=== PATIENT | female | born 1990 | race Hispanic/Latino ===

== ENCOUNTER 2018-09-14 20:04 | Emergency (ER) | payer OTHER ==
[2018-09-14 20:43] LABS: Urine Blood NEGATIVE (NEG); Urine Glucose TRACE (NEG); Urine Protein 1+ (NEG); Urine pH 5.5 (5.0-7.0)
[2018-09-14 21:27] LABS: Absolute Lymphocytes (CBC) 1.9 K/uL (0.7-4.9); Basophils % 0.4 % (0-1.3); Eosinophils % 0.6 % (0-4.4); Hematocrit 40.4 % (36.0-45.0); Lymphocytes % 14.4 % (15.3-44.8); Monocytes % 7.5 % (3.3-12.3); RBC Red Blood Cell Count 4.38 M/uL (3.86-4.86)
[2018-09-14 21:53] LABS: BUN Blood Urea Nitrogen 12 mg/dL (7-18); Bicarbonate 22 mmol/L (21-32); Glucose Level 85 mg/dL (74-106); HCG, Quantitative 107652 mIU/mL (1-3); Potassium 4.8 mmol/L (3.5-5.1); Sodium Level 137 mmol/L (136-145)
[2018-09-14 22:02] LABS: Blood Morphology Comment NOT SEEN (NOT SEEN); Platelet Estimate ADEQ; Urine White Blood Cell Casts OK
--- NOTE | 2018-09-14 22:30 | ER ---
Nurse's Notes [facility] Name: Iram Greco Age: 28 yrs Sex: Female : 1990 Arrival Date: 09/14/2018 Time: 20:08 Bed 30 Private MD: Diagnosis: Lower abdominal pain, unspecified;Intrauterine Presentation: 09/14 20:10 Presenting complaint: Patient states: Pain to pelvic region that began yesterday, lp1 worsening; hx of ovarian cysts; "I think I'm 11 weeks as well"; Denies any vaginal discharge, bleeding. Transition of care: patient was not received from another setting of care. Onset of symptoms was September 13, 2018. Risk Assessment: Do you want to hurt yourself or someone else? Patient reports no desire to harm self or others. Initial Sepsis Screen: Does the patient meet any 2 criteria? No. Patient's initial sepsis screen is negative. Does the patient have a suspected source of infection? No. Patient's initial sepsis screen is negative. Care prior to arrival: None. 20:10 Method Of Arrival: Ambulatory lp1 20:10 Acuity: SCOT 3 lp1 Triage Assessment: 20:14 General: Appears uncomfortable, Behavior is appropriate for age. Pain: Complains of lp1 pain in suprapubic area Pain currently is 8 out of 10 on a pain scale. Quality of pain is described as sharp, Pain began 1 day ago. GI: Abdomen is flat. 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 - Social history:: Smoking status: Patient/guardian denies using tobacco. - Ebola Screening: : No symptoms or risks identified at this time. - Family history:: not pertinent. - Hospitalizations: : No recent hospitalization is reported. Screenin:13 Abuse screen: Denies threats or abuse. Denies injuries from another. Nutritional lp1 screening: No deficits noted. Tuberculosis screening: No symptoms or risk factors identified. Fall Risk None identified. Assessment: 20:45 General: Appears in no apparent distress. uncomfortable, Behavior is calm, cooperative, ca1 appropriate for age. Pain: Complains of pain in suprapubic area and right lower quadrant Pain radiates to right low back Pain currently is 8 out of 10 on a pain scale. Quality of pain is described as crampy. Neuro: Level of Consciousness is awake, alert, obeys commands, Oriented to person, place, time, situation. Cardiovascular: Heart tones S1 S2 present Capillary refill < 3 seconds Patient's skin is warm and dry. Respiratory: Airway is patent Respiratory effort is even, unlabored, Respiratory pattern is regular, symmetrical, Breath sounds are clear bilaterally. GI: Abdomen is flat, non-distended, Bowel sounds present X 4 quads. Abd is soft X 4 quads Abdomen is tender to palpation in suprapubic area and right lower quadrant. : No signs and/or symptoms were reported regarding the genitourinary system. :. EENT: No signs and/or symptoms were reported regarding the EENT system. Derm: Skin is intact, is healthy with good turgor, Skin is pink, warm \\T\\ dry. Musculoskeletal: Circulation, motion, and sensation intact. 21:50 Reassessment: Patient appears in no apparent distress at this time. Patient and/or ca1 family updated on plan of care and expected duration. Pain level reassessed. Patient is alert, oriented x 3, equal unlabored respirations, skin warm/dry/pink. 22:30 Reassessment: Patient appears in no apparent distress at this time. Patient and/or ca1 family updated on plan of care and expected duration. Pain level reassessed. Patient is alert, oriented x 3, equal unlabored respirations, skin warm/dry/pink. Vital Signs: 20:12 BP 149 / 90; Pulse 85; Resp 18; Temp 98.3(O); Pulse Ox 100% on R/A; Weight 58.97 kg lp1 (R); Height 5 ft. 1 in. (154.94 cm); Pain 8/10; 21:50 BP 122 / 87; Pulse 88; Resp 19; Pulse Ox 100% on R/A; ca1 22:30 BP 125 / 83; Pulse 79; Resp 19; Pulse Ox 100% on R/A; ca1 20:12 Body Mass Index 24.56 (58.97 kg, 154.94 cm) lp1 ED Course: 20:08 Patient arrived in ED. es 20:12 Triage completed. lp1 20:12 Arm band placed on left wrist. lp1 20:45 Patient has correct armband on for positive identification. Placed in gown. Bed in low ca1 position. Call light in reach. Side rails up X 1. Pulse ox on. NIBP on. Warm blanket given. 20:46 Abhi Glasgow MD is Attending Physician. rn 20:46 Kenyatta Davidson, JAE is Primary Nurse. ca1 21:03 Inserted saline lock: 22 gauge in right antecubital area, using aseptic technique. ca1 Blood collected. 21:41 TRANSVAG OB In Process Unspecified. EDMS 22:39 No provider procedures requiring assistance completed. IV discontinued, intact, ca1 bleeding controlled, No redness/swelling at site. Pressure dressing applied. Administered Medications: No medications were administered Outcome: 22:29 Discharge ordered by MD. rn 22:39 Discharged to home ambulatory, with family. ca1 22:39 Condition: stable 22:39 Discharge instructions given to patient, Instructed on discharge instructions, follow up and referral plans. Demonstrated understanding of instructions, follow-up care, medications. 22:39 Patient left the ED. ca1 Signatures: Dispatcher [employer] EDVT JuliaKorin Abhi Glasgow MD MD rn Pena, Laura, RN RN lp1 Kenyatta Davidson RN RN ca1 Corrections: (The following items were deleted from the chart) 20:14 20:12 58.97 kg Reported; Height 5 ft. 1 in.; BMI: 24.5; Pain 8/10; lp1 lp1
--- NOTE | 2018-09-14 22:30 | EDPHYS ---
Physician Documentation [facility] Name: Iram Greco Age: 28 yrs Sex: Female : 1990 Arrival Date: 09/14/2018 Time: 20:08 Bed 30 Private MD: ED Physician Abhi Glasgow HPI: 09/14 22:25 This 28 yrs old Female presents to ER via Ambulatory with complaints of rn Abdominal Pain. 22:25 The patient presents with abdominal pain. Onset: The symptoms/episode began/occurred rn today. The symptoms do not radiate. Associated signs and symptoms: Pertinent positives: , Pertinent negatives: blood in stools, fever. Modifying factors: The symptoms are alleviated by nothing, the symptoms are aggravated by touching the area. Severity of pain: At its worst the pain was moderate in the emergency department the pain is unchanged. The patient has experienced similar episodes in the past. Reports multiple similar pains in past, attributed to ovarian cysts, reports thinks 11 weeks preg and no u/s or verification. NO fever. Hurts when walking, pain comes in waves. NO urinary symptoms.. 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 - Social history:: Smoking status: Patient/guardian denies using tobacco. - Ebola Screening: : No symptoms or risks identified at this time. - Family history:: not pertinent. - Hospitalizations: : No recent hospitalization is reported. ROS: 22:25 Constitutional: Negative for fever, chills, and weight loss, Eyes: Negative for injury, rn pain, redness, and discharge, Neck: Negative for injury, pain, and swelling, Cardiovascular: Negative for chest pain, palpitations, and edema, Respiratory: Negative for shortness of breath, cough, wheezing, and pleuritic chest pain, Abdomen/GI: + lower abd pain MS/Extremity: Negative for injury and deformity, Skin: Negative for injury, rash, and discoloration, Neuro: Negative for headache, weakness, numbness, tingling, and seizure. Exam: 22:25 Constitutional: This is a well developed, well nourished patient who is awake, alert, rn and in no acute distress. Head/Face: Normocephalic, atraumatic. Eyes: Pupils equal round and reactive to light, extra-ocular motions intact. ENT: MMM Respiratory: No increased work of breathing, no retractions or nasal flaring. Abdomen/GI: soft, mild suprapubic tenderness, no rebound, no masses, no peritoneal signs Skin: Warm, dry with normal turgor. Normal color with no rashes, no lesions, and no evidence of cellulitis. MS/ Extremity: Pulses equal, no cyanosis. Neurovascular intact. Full, normal range of motion. Equal circumference. Neuro: Awake and alert, GCS 15, oriented to person, place, time, and situation. Vital Signs: 20:12 BP 149 / 90; Pulse 85; Resp 18; Temp 98.3(O); Pulse Ox 100% on R/A; Weight 58.97 kg lp1 (R); Height 5 ft. 1 in. (154.94 cm); Pain 8/10; 21:50 BP 122 / 87; Pulse 88; Resp 19; Pulse Ox 100% on R/A; ca1 22:30 BP 125 / 83; Pulse 79; Resp 19; Pulse Ox 100% on R/A; ca1 20:12 Body Mass Index 24.56 (58.97 kg, 154.94 cm) lp1 MDM: 20:46 Patient medically screened. rn 22:25 Differential diagnosis: Ectopic , non-specific abd pain, Ovarian Torsion, rn Ureterolithiasis, urinary tract infection. Differential diagnosis: appendicitis. Data reviewed: vital signs, nurses notes. Counseling: I had a detailed discussion with the patient and/or guardian regarding: the historical points, exam findings, and any diagnostic results supporting the discharge/admit diagnosis, lab results, radiology results, the need for outpatient follow up, to return to the emergency department if symptoms worsen or persist or if there are any questions or concerns that arise at home. Special discussion: I discussed with the patient/guardian in detail that at this point there is no indication for admission to the hospital. It is understood, however, that if the symptoms persist or worsen the patient needs to return immediately for re-evaluation. ED course: Pt with IUP, normal FHTs, flow to both ovaries by verbal report, afebrile, neg UA. Instructions given to patient to return if worsens/fever/more signs of appendicitis given lower abd pain.. 09/14 20:37 Order name: Urine Dipstick--Ancillary (enter results); Complete Time: 20:46 ar5 09/14 20:37 Order name: Urine --Ancillary (enter results); Complete Time: 20:46 ar5 09/14 20:47 Order name: Quantitative Hcg; Complete Time: 22:13 09/14 20:47 Order name: Abo/rh Typing; Complete Time: 22:13 09/14 20:47 Order name: Basic Metabolic Panel; Complete Time: 22:13 09/14 20:47 Order name: CBC with Diff; Complete Time: 22:13 09/14 20:26 Order name: Urine Dipstick-Ancillary (obtain specimen); Complete Time: 21:16 lp1 09/14 20:26 Order name: Urine Test (obtain specimen); Complete Time: 21:16 [facility] 09/14 20:47 Order name: IV Start; Complete Time: 21:16 09/14 20:47 Order name: Labs collected and sent; Complete Time: 21:15 rn 09/14 21:26 Order name: TRANSVAG OB EDDE 09/14 21:41 Order name: CBC Smear Scan; Complete Time: 22:13 EDDE 09/14 22:23 Order name: ABO/RH no charge; Complete Time: 22:24 EDDE 09/14 20:47 Order name: NPO; Complete Time: 21:15 rn Administered Medications: No medications were administered Disposition: 09/14/18 22:29 Discharged to Home. Impression: Lower abdominal pain, unspecified, Intrauterine . - Condition is Stable. - Discharge Instructions: Abdominal Pain During , First Trimester of . - Medication Reconciliation Form, Thank You Letter, Antibiotic Education, Prescription Opioid Use form. - Follow up: Private Physician; When: As needed; Reason: Recheck today's complaints, Re-evaluation by your physician. - Problem is new. - Symptoms have improved. Signatures: Dispatcher [employer] EDMS Abhi Glasgow MD MD rn Pena, Laura RN RN lp1 Kenyatta Davidson RN RN ca1 Corrections: (The following items were deleted from the chart) 21:26 20:47 OB Limited+[id number] ordered. EDMS EDMS 22:39 22:29 09/14/2018 22:29 Discharged to Home. Impression: Lower abdominal pain, ca1 unspecified; Intrauterine . Condition is Stable. Forms are Medication Reconciliation Form, Thank You Letter, Antibiotic Education, Prescription Opioid Use. Follow up: Private Physician; When: As needed; Reason: Recheck today's complaints, Re-evaluation by your physician. Problem is new. Symptoms have improved. rn
[2018-09-15 00:57] VITALS: BP 149/90; TEMP 98.3; O2SAT 100
--- NOTE | 2018-09-15 08:16 | RAD REPORT ---
EXAM DESCRIPTION: US - TRANSVAG OB - 09/14/2018 9:41 pm CLINICAL HISTORY: with abdominal pain COMPARISON: None FINDINGS: The uterus measures 10 x 7 x 8 centimeters. A gestational sac is present within the endom etrium. Within this is a pole with a crown-rump length 2.2 centimeters. Cardiac activity 168 be ats per minute. The ovaries are normal in size echotexture. Right and left adnexa unremarkable. No significant free fluid IMPRESSION: Single live intrauterine with an estimated gestational age 8 weeks 6 days ALEXIA 04/20/2019
== END 2018-09-14 22:39 | disposition home or self-care (01) ==
LOC: ER 20:04
DX: O26.891 Other specified pregnancy related conditions, first trimester (principal); Z3A.11 11 weeks gestation of pregnancy
CPT/HCPCS: 36415; 76813; 80048; 81003; 81025; 84702; 85025; 86900; 86901

== ENCOUNTER 2022-01-09 07:28 | Emergency (ER) | payer OTHER ==
--- OUTSIDE RECORDS SUMMARY | 2022-01-09 07:32 | XMS REPORT | Continuity of Care Document ---
:1990 Author Organization [facility] t Address [address] [place] [address] Care Team Providers Name Role Phone BANDAR Attending Clinician Unavailable G_Pappastacie Attending Clinician Unavailable FISH Attending Clinician Unavailable UNKNOWN Attending Clinician Unavailable RAAD, A Attending Clinician Unavailable BANDAR Admitting Clinician Unavailable G_Pappas Admitting Clinician Unavailable Payers Payer Name Policy Type Policy Number Effective Date Expiration Date S [place] [id number] [place] [facility] [id number] [facility] (MEDICAID REPLACEMENT - HMO) [place] [id number] [facility] (MEDICAID) [place] [id number] 2020 00:00:00 [facility] [place] [facility] [id number] 2019 00:00:00 [facility] GENERIC [id number] 2012 00:00:00 [facility] [id number] 2012 2020 [facility] MEDICAID 00:00:00 00:00:00 Problems Condition Condition Condition Status Onset Resolution Last Treating Co mments Source Name Details Category Date Date Treatment Clinician Date Gynecologi Gynecologi Problem Active 2019-07 [facility] c 0-06 da examinatio Examinatio 00:00: Me dical n n 00 Group Initiation Initiation Problem Active 2019-07 [facility] of of 0-06 da transderma Transderma 00:00: Me dical l l 00 Group contracept Contracept ion done ion Done Mild Mild Problem Active [facility] pre-eclamp Pre-eclamp 9-06 da santi santi 00:00: Medical 00 Group Threatened Threatened Problem Active 0 [facility] premature Premature 02-14 da labor - Labor - 00:00: Medical not Not 00 Group delivered Delivered Allergies, Adverse Reactions, Alerts Allergy Allergy Status Severity Reaction(s) Onset Inactive Treating Comm ents Source Name Type Date Date Clinician No Known DA Active [facility] -[facility] NO KNOWN Drug Active Univers ALLERGIE Class ity of [facility] Social History Smoking Status Start Date Stop Date Source Never Smoker [facility] Medications This patient has no known medications. Vital Signs Vital Name Observation Time Observation Value Comments Source BP Diastolic 2020-10-25 00:00:00 78 mm[Hg] [facility] Height 2020-10-25 00:00:00 61 [in_i] [facility] BMI (Body Mass 2020-10-25 00:00:00 24.8 kg/m2 [facility] business development [facility] Index) Group BP Systolic 2020-10-25 00:00:00 129 mm[Hg] [facility] Body Weight 2020-10-25 00:00:00 131 [lb_av] [facility] BP Diastolic 2020-05-01 00:00:00 82 mm[Hg] [facility] Height 2020-05-01 00:00:00 61 [in_i] [facility] BMI (Body Mass 2020-05-01 00:00:00 23.8 kg/m2 [facility] business [facility] Index) Group BP Systolic 2020-05-01 00:00:00 138 mm[Hg] [facility] Body Weight 2020-05-01 00:00:00 126.1 [lb_av] [facility] BP Diastolic 2019-05-24 00:00:00 95 mm[Hg] [facility] Height 2019-05-24 00:00:00 61 [in_i] [facility] BMI (Body Mass 2019-05-24 00:00:00 24.8 kg/m2 [facility] business development [facility] Index) Group BP Systolic 2019-05-24 00:00:00 127 mm[Hg] [facility] Body Weight 2019-05-24 00:00:00 131 [lb_av] [facility] BP Diastolic 2019-05-05 00:00:00 88 mm[Hg] [facility] Height 2019-05-05 00:00:00 61 [in_i] [facility] BMI (Body Mass 2019-05-05 00:00:00 24.6 kg/m2 [facility] Index) Group BP Systolic 2019-05-05 00:00:00 132 mm[Hg] [facility] Body Weight 2019-05-05 00:00:00 130.4 [lb_av] [facility] BP Diastolic 2019-04-07 00:00:00 90 mm[Hg] [facility] Height 2019-04-07 00:00:00 61 [in_i] [facility] BMI (Body Mass 2019-04-07 00:00:00 27.7 kg/m2 [facility] Index) Group BP Systolic 2019-04-07 00:00:00 136 mm[Hg] [facility] Body Weight 2019-04-07 00:00:00 146.8 [lb_av] [facility] BP Diastolic 2019-04-01 00:00:00 88 mm[Hg] [facility] Height 2019-04-01 00:00:00 61 [in_i] [facility] BMI (Body Mass 2019-04-01 00:00:00 27.5 kg/m2 [facility] Index) Group BP Systolic 2019-04-01 00:00:00 145 mm[Hg] [facility] Body Weight 2019-04-01 00:00:00 145.7 [lb_av] [facility] BP Diastolic 2019-03-17 00:00:00 72 mm[Hg] [facility] Height 2019-03-17 00:00:00 61 [in_i] [facility] BMI (Body Mass 2019-03-17 00:00:00 26.8 kg/m2 [facility] Group BP Systolic 2019-03-17 00:00:00 115 mm[Hg] [facility] Body Weight 2019-03-17 00:00:00 141.7 [lb_av] [facility] BP Diastolic 2019-03-01 00:00:00 72 mm[Hg] [facility] Height 2019-03-01 00:00:00 61 [in_i] [facility] BMI (Body Mass 2019-03-01 00:00:00 26.3 kg/m2 [facility] Index) Group BP Systolic 2019-03-01 00:00:00 127 mm[Hg] [facility] Body Weight 2019-03-01 00:00:00 139.2 [lb_av] [facility] BP Diastolic 2019-02-14 00:00:00 73 mm[Hg] [facility] Height 2019-02-14 00:00:00 61 [in_i] [facility] BMI (Body Mass 2019-02-14 00:00:00 25.7 kg/m2 [facility] BP Systolic 2019-02-14 00:00:00 125 mm[Hg] [facility] Body Weight 2019-02-14 00:00:00 135.9 [lb_av] [facility] BP Diastolic 2019-02-01 00:00:00 80 mm[Hg] [facility] Height 2019-02-01 00:00:00 61 [in_i] [facility] BMI (Body Mass 2019-02-01 00:00:00 26 kg/m2 [facility]) Group BP Systolic 2019-02-01 00:00:00 124 mm[Hg] [facility] Body Weight 2019-02-01 00:00:00 137.6 [lb_av] [facility] BP Diastolic 2019-01-28 00:00:00 80 mm[Hg] [facility] Height 2019-01-28 00:00:00 61 [in_i] [facility] BMI (Body Mass 2019-01-28 00:00:00 25.9 kg/m2 [facility] BP Systolic 2019-01-28 00:00:00 124 mm[Hg] [facility] Body Weight 2019-01-28 00:00:00 137 [lb_av] [facility] BP Diastolic 2018-11-22 00:00:00 74 mm[Hg] [facility] Height 2018-11-22 00:00:00 61 [in_i] [facility] BMI (Body Mass 2018-11-22 00:00:00 24.2 kg/m2 [facility] Group BP Systolic 2018-11-22 00:00:00 124 mm[Hg] [facility] Body Weight 2018-11-22 00:00:00 128.1 [lb_av] [facility] BP Diastolic 2018-11-15 00:00:00 77 mm[Hg] [facility] Height 2018-11-15 00:00:00 61 [in_i] [facility] BMI (Body Mass 2018-11-15 00:00:00 23.1 kg/m2 [facility] BP Systolic 2018-11-15 00:00:00 127 mm[Hg] [facility] Body Weight 2018-11-15 00:00:00 122 [lb_av] [facility] BP Diastolic 2018-10-13 00:00:00 78 mm[Hg] [facility] Height 2018-10-13 00:00:00 61 [in_i] [facility] BP Systolic 2018-10-13 00:00:00 120 mm[Hg] [facility] Body Weight 2018-10-13 00:00:00 121 [lb_av] [facility] BP Diastolic 2018-09-15 00:00:00 86 mm[Hg] [facility] Height 2018-09-15 00:00:00 61 [in_i] [facility] BMI (Body Mass 2018-09-15 00:00:00 23.3 kg/m2 [facility] BP Systolic 2018-09-15 00:00:00 132 mm[Hg] [facility] Body Weight 2018-09-15 00:00:00 123.5 [lb_av] [facility] Procedures Procedure Date / Time Performing Clinician Source Performed US(FBP)W/0 NON STRESS 2019-04-07 00:00:00 [facility] US, obstetric, limited 2019-04-01 00:00:00 [facility], limited [facility] 2019-02-14 00:00:00 [facility] ULTRASOUND REPEAT 2019-02-01 00:00:00 [facility] US, obstetric, limited 2018-11-15 00:00:00 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 Medical translucency Group Plan of Care Planned Activity Planned Date Details Comments Source Diagnostic Test 2020-10-25 urinalysis, [facility] 00:00:00 dipstick [code = Group urinalysis, dipstick] Diagnostic Test 2020-10-25 test, [facility] Pending 00:00:00 urine [code = Group test, urine] Encounters Start End Encounter Admission Attending Care Care Encounter Source Date/Time Date/Time Type Type Clinicians Facility Department ID 2021-08-01 2021-08-01 Outpatient LISTER_GRACYI YAW [facility] [id number] [place] 04:57:00 04:57:00 [id number] 2021-06-19 2021-06-19 Outpatient LISTER_SCOTT [facility] [id number] [place] 11:48:00 11:48:00 [facility] 2020-10-25 2020-10-25 Outpatient G_Pappas [facility] 2020 [place] 11:25:00 11:25:00 0401 [facility] 2020-10-25 2020-10-25 Outpatient [facility] 2020 [place] 11:25:00 11:25:00 0415 [facility] 2020-10-25 2020-10-25 Kyle [facility] [place] - [id number] [facility] 00:00:00 00:00:00 Discovery morgan Tarango MD: [address] [address], [place] [address] , Ph. [phone] 2020-10-11 2020-10-11 Outpatient G_Pappas [facility] 2020 [place] 03:11:00 03:11:00 0318 Medical Group 2020-10-11 2020-10-11 Outpatient G_Pappas [facility] 2020 [place] 03:11:00 03:11:00 0326 Medical Group 2020-09-03 2020-09-03 Outpatient R JOCELYN HONG [facility] [id number] [facility] 10:30:00 10:30:00 [id number] [facility] 2020-09-03 2020-09-03 Outpatient JOCELYN STEINER [facility] [id number] Univers 10:30:00 10:30:00 [facility] 2020-08-27 2020-08-27 Outpatient R JOCELYN HONG [facility] [id number] Univers 10:30:00 10:30:00 [facility] 2020-08-27 2020-08-27 Outpatient R JOCELYN HONG [facility] [id number] Univers 08:30:00 08:30:00 [id number] [facility] 2020-08-20 2020-08-20 Outpatient LISTER_SCOTT VASQUEZ [facility] [id number] [place] 09:57:00 09:57:00 [facility] 2020-08-16 2020-08-16 Outpatient LISTER_MELI PEDRO [facility] [id number] [place] 04:03:00 04:03:00 [facility] 0121 [facility] 2020-08-03 2020-08-03 Outpatient G_Pappas [facility] 2020 [place] 04:26:00 04:26:00 0108 Medical Group 2020-08-03 2020-08-03 Outpatient G_Pappas [facility] 2020 [place] 04:26:00 04:26:00 0119 Medical Group 2020-06-13 2020-06-13 Outpatient G_Pappas [facility] 2019 [place] 02:47:00 02:47:00 [id number] Medical Group 2020-05-01 2020-05-01 Outpatient G_Pappas [facility] 2019 [place] 03:37:00 03:37:00 1006 [facility] Group 2020-05-01 2020-05-01 Outpatient G_Pappas [facility] 2019 [place] 03:37:00 03:37:00 1007 [facility] 2020-05-01 2020-05-01 Aleida Rouse [facility] [place] - [id number] [place] 00:00:00 00:00:00 Discovery Nacho da WHNP: [address] [facility] [place] [address], [place] [address] , Ph. [phone] 2020-04-27 2020-04-27 Outpatient R [facility] [id number] Univers 15:00:00 15:00:00 [facility] 2020-04-27 2020-04-27 Outpatient R [facility] [id number] Univers 15:00:00 15:00:00 [facility] 2020-02-05 2020-02-05 Outpatient R UNKNOWN, [facility] [id number] Univers 16:00:00 16:00:00 ATTENDING [facility] 2020-02-05 2020-02-05 Outpatient R [facility] [id number] Univers 16:00:00 16:00:00 [id number] [facility] 2020-01-19 2020-01-19 Outpatient R [facility] [id number] Univers 14:45:00 14:45:00 [id number] [facility] 2020-01-19 2020-01-19 Outpatient R RAAD, [facility] [id number] Univers 14:00:00 14:00:00 CARMEN [facility] 2020-01-05 2020-01-05 Outpatient G_Pappas [facility] MM 2019 [place] 03:26:00 03:26:00 0611 Medical Group 2020-01-05 2020-01-05 Outpatient G_Pappas [facility] 2019 [place] 03:26:00 03:26:00 0625 Medical [facility] 2020-01-05 2020-01-05 Outpatient G_Pappas [facility] [id number] [place] 03:26:00 03:26:00 0715 da Medical Group 2019-06-10 2019-06-10 Outpatient G_Pappas [facility] [id number] [facility] 04:08:00 04:08:00 [id number] [facility] 2019-06-10 2019-06-10 Outpatient G_Pappas [facility] [id number] [place] 04:08:00 04:08:00 0113 [facility] 2019-05-24 2019-05-24 Kyle PINO [place] - [id number] [facility] 00:00:00 00:00:00 Discovery morgan Tarango MD: [address] [place] [address] , Ph. [phone] 2019-05-05 2019-05-05 Kyle [place] - [id number] [facility] 00:00:00 00:00:00 Discovery mrogan Tarango MD: [address] [place] [address] , Ph. [phone] 2019-04-07 2019-04-07 Kyle [place] - [id number] [facility] 00:00:00 00:00:00 Discovery morgan Tarango MD: [address] [place] [address] , Ph. [phone] 2019-04-01 2019-04-01 Kyle [place] - [id number] [facility] 00:00:00 00:00:00 Discovery morgan Tarango MD: [address] [place] [address] , Ph. [phone] 2019-03-17 2019-03-17 Aleida Rouse [facility] [place] - [id number] [place] 00:00:00 00:00:00 Discovery morgan Griffith WHNP: [address] [place] [address] , Ph. [phone] 2019-03-01 2019-03-01 Kyle [place] - [id number] [facility] 00:00:00 00:00:00 Discovery morgan Tarango MD: [address] [place] [address], [address] [address], [place] [address] , Ph. [phone] 2019-02-14 2019-02-14 Kyle [place] - [id number] M [facility] 00:00:00 00:00:00 Discovery morgan Tarango MD: [address] [place] [address], [address] [address], [place] [address] , Ph. [phone] 2019-02-01 2019-02-01 Kyle [place] - [id number] [facility] 00:00:00 00:00:00 Discovery morgan Tarango MD: [address] [place] [address], [address] [address], [place] [address] , Ph. [phone] 2019-01-28 2019-01-28 Kyle [place] - [id number] [facility] 00:00:00 00:00:00 Discovery morgan Tarango MD: [address] [place] [address], [address] [address], [place] [address] , Ph. [phone] 2018-11-22 2018-11-22 Aleida [place] - [id number] [place] 00:00:00 00:00:00 Discovery morgan Griffith WHNP: [address] [place] [address], [place] [address] , Ph. [phone] 2018-11-15 2018-11-15 Aleida [place] - [id number] [place] 00:00:00 00:00:00 Discovery Nicholas GriffithNP: [address] [place] [address], [address] [address], [place] [address] , Ph. [phone] 2018-10-13 2018-10-13 Isabell [place] - [id number] [facility] 00:00:00 00:00:00 Ariana Moreno Medicgiovany nair MD: [address] [facility] [place] [address] , Ph. [phone] 2018-09-15 2018-09-15 Isabell [facility] [place] - [id number] M [facility] 00:00:00 00:00:00 Ariana Moreno MD: 600 [facility] [address] [address] , Ph. [phone] Results Test Description Test Time Test Comments Results Result Comments Source test, urine 2020-10-25 10:31:45 Test Item Value Reference Range Interpretation Comme nts Test (test code = Test) negative [facility] (dipstick) panel - [id number] 10:26:07 Test Item Value Reference Range Interpretation Comments Leukocytes (test code = Negative Leukocytes) Nitrite (test code = negative Nitrite) Urobilinogen (test code = .2 Urobilinogen) Protein (test code = Negative Protein) pH (test code = pH) 5.5 Blood (test code = Blood) Hemolyzed: Trace Specific [place] (test code 1.030 = Specific [place]) Ketone (test code = Ketone) Negative Bilirubin (test code = Negative Bilirubin) Glucose (test code = Negative Glucose) Appearance (test code = Clear Appearance) Color (test code = Color) Yellow [facility] test, [id number] 13:22:27 Test Item Value Reference Range Interpretation Comments Test (test code = negative Test) [facility] macro (dipstick) panel - [id number] 11:02:00 Test Item Value Reference Range Interpretation Comments Leukocytes (test code = Leukocytes) Negative Nitrite (test code = Nitrite) negative Urobilinogen (test code = 1 Urobilinogen) Protein (test code = Protein) Negative pH (test code = pH) 5.5 Blood (test code = Blood) Negative Specific [place] (test code = 1.030 Specific [place]) Ketone (test code = Ketone) Negative Bilirubin (test code = Bilirubin) Negative Glucose (test code = Glucose) Negative Appearance (test code = Appearance) Clear Color (test code = Color) Yellow [facility] macro (dipstick) panel - [id number] 11:02:00 Test Item Value Reference Range Interpretation Comments Leukocytes (test code = Leukocytes) Negative Nitrite (test code = Nitrite) negative Urobilinogen (test code = 1 Urobilinogen) Protein (test code = Protein) Negative pH (test code = pH) 5.5 Blood (test code = Blood) Negative Specific [place] (test code = 1.030 Specific [place]) Ketone (test code = Ketone) Negative Bilirubin (test code = Bilirubin) Negative Glucose (test code = Glucose) Negative Appearance (test code = Appearance) Clear Color (test code = Color) [facility] - [id number] 09:05:00 Test Item Value Reference Range Interpretation Comments white blood count (test code = 9.3 K/uL 4.0-11.5 white blood count) red blood count (test code = red 3.52 M/uL 3.80-5.20 L blood count) hemoglobin (test code = 9.2 g/dL 10.5-15.7 L hemoglobin) hematocrit (test code = 29.2 % 34.0-50.0 L hematocrit) Erythrocyte mean corpuscular 83.0 fL 86-100 L volume [Entitic volume] (test code = 02830-3) mean corpuscular hemoglobin (test 26.1 pg 26.2-33.4 L code = mean corpuscular hemoglobin) mean corpuscular HGB conc (test 31.5 g/dL 30-34 code = mean corpuscular HGB conc) red cell distribution width (test 14.5 % 12.0-15.5 code = red cell distribution width) platelet count (test code = 113 K/uL 165-450 L platelet count) mean platelet volume (test code = 12.7 fL 9.4-12.6 H mean platelet volume) Neutrophils.segmented/100 69.4 % 44.4-80.1 leukocytes in Blood (test code = 54448-4) Granulocytes Immature [#/volume] 0.1 K/uL 0.0-0.03 H in Blood (test code = 01525-3) lymphocyte% (test code = 20.0 % 10.0-50.0 lymphocyte%) mono % (test code = mono %) 7.7 % 3.6-12.0 eos % (test code = eos %) 1.7 % 0.0-5.4 Basophils/100 leukocytes in 0.3 % 0.1-1.2 Unspecified specimen (test code = 66022-2) Neutrophils.band form [#/volume] 6.47 K/uL 1.56-6.13 H in Blood (test code = 04607-7) Lymphocytes [#/volume] in 1.9 K/uL 1.18-3.74 Unspecified specimen by Automated count (test code = 86927-0) mono # (test code = mono #) 0.72 K/uL 0.24-0.86 eos # (test code = eos #) 0.16 K/uL 0.04-0.36 basophil # (test code = basophil 0.03 K/uL 0.01-0.08 #) NRBC% (test code = NRBC%) 0 /100 WBC 0-0.2 NRBC# (test code = NRBC#) 0 K/uL [facility] W Auto Differential panel - [id number] 04:40:00 Test Item Value Reference Range Interpretation Comments white blood count (test code = 7.4 K/uL 4.0-11.5 white blood count) red blood count (test code = red 3.69 M/uL 3.80-5.20 L blood count) hemoglobin (test code = 9.7 g/dL 10.5-15.7 L hemoglobin) hematocrit (test code = 30.6 % 34.0-50.0 L hematocrit) Erythrocyte mean corpuscular 82.9 fL 86-100 L volume [Entitic volume] (test code = 06797-6) mean corpuscular hemoglobin (test 26.3 pg 26.2-33.4 code = mean corpuscular hemoglobin) mean corpuscular HGB conc (test 31.7 g/dL 30-34 code = mean corpuscular HGB conc) red cell distribution width (test 14.4 % 12.0-15.5 code = red cell distribution width) platelet count (test code = 128 K/uL 165-450 L platelet count) mean platelet volume (test code = 12.6 fL 9.4-12.6 mean platelet volume) Neutrophils.segmented/100 65.0 % 44.4-80.1 leukocytes in Blood (test code = 40537-6) Granulocytes Immature [#/volume] 0.1 K/uL 0.0-0.03 H in Blood (test code = 47781-5) lymphocyte% (test code = 21.3 % 10.0-50.0 lymphocyte%) mono % (test code = mono %) 10.5 % 3.6-12.0 eos % (test code = eos %) 1.8 % 0.0-5.4 Basophils/100 leukocytes in 0.3 % 0.1-1.2 Unspecified specimen (test code = 93995-5) Neutrophils.band form [#/volume] 4.83 K/uL 1.56-6.13 in Blood (test code = 26693-8) Lymphocytes [#/volume] in 1.6 K/uL 1.18-3.74 Unspecified specimen by Automated count (test code = 50327-0) mono # (test code = mono #) 0.78 K/uL 0.24-0.86 eos # (test code = eos #) 0.13 K/uL 0.04-0.36 basophil # (test code = basophil 0.02 K/uL 0.01-0.08 #) NRBC% (test code = NRBC%) 0 /100 WBC 0-0.2 NRBC# (test code = NRBC#) 0 K/uL [facility] [Presence] in Serum by [id number] 04:40:00 Test Item Value Reference Range Interpretation Comments Reagin Ab [Presence] in Serum by nonreactive nonreactive RPR (test code = 83489-6) [facility]atitis B virus surface Ag [Presence] in Serum 2019-04-13 04:40:00 Test Item Value Reference Range Interpretation Comments .hepatitis B surface antigen (test negative negative code = .hepatitis B surface antigen) [facility]aksFetal Biophysical profile panel [id number] 11:26:16 Test Item Value Reference Range Interpretation Comments Amniotic Fluid Index (test code = 2 (16.6) Amniotic Fluid Index) Tone (test code = Tone) 2 Breathing (test code = 2 Breathing) Movement (test code = 2 Movement) Non-Stress Test (test code = 2 Non-Stress Test) [facility] Bi[facility] profile panel [id number] 11:26:16 Test Item Value Reference Range Interpretation Comments Amniotic Fluid Index (test code = 2 (16.6) Amniotic Fluid Index) Tone (test code = Tone) 2 Breathing (test code = 2 Breathing) Movement (test code = 2 Movement) Non-Stress Test (test code = 2 Non-Stress Test) [facility]inalysis macro (dipstick) panel - [id number] 11:01:27 Test Item Value Reference Range Interpretation Comments Leukocytes (test code = Leukocytes) Negative Nitrite (test code = Nitrite) negative Urobilinogen (test code = 1 Urobilinogen) Protein (test code = Protein) 100 pH (test code = pH) 5.5 Blood (test code = Blood) Negative Specific [place] (test code = 1.030 Specific [place]) Ketone (test code = Ketone) Small Bilirubin (test code = Bilirubin) Small Glucose (test code = Glucose) 100 Appearance (test code = Appearance) Clear Color (test code = Color) [place] [facility]inalysis macro (dipstick) panel - [id number] 11:01:27 Test Item Value Reference Range Interpretation Comments Leukocytes (test code = Leukocytes) Negative Nitrite (test code = Nitrite) negative Urobilinogen (test code = 1 Urobilinogen) Protein (test code = Protein) 100 pH (test code = pH) 5.5 Blood (test code = Blood) Negative Specific [place] (test code = 1.030 Specific [place]) Ketone (test code = Ketone) Small Bilirubin (test code = Bilirubin) Small Glucose (test code = Glucose) 100 Appearance (test code = Appearance) Clear Color (test code = Color) [place] [facility]inalysis macro (dipstick) panel - [id number] 10:25:10 Test Item Value Reference Range Interpretation Comments Leukocytes (test code = Leukocytes) Negative Nitrite (test code = Nitrite) negative Urobilinogen (test code = 1 Urobilinogen) Protein (test code = Protein) 100 pH (test code = pH) 6.0 Blood (test code = Blood) Negative Specific [place] (test code = 1.030 Specific [place]) Ketone (test code = Ketone) Trace Bilirubin (test code = Bilirubin) Small Glucose (test code = Glucose) 100 Appearance (test code = Appearance) Clear Color (test code = Color) [facility] - [id number] 10:25:10 Test Item Value Reference Range Interpretation Comments Leukocytes (test code = Leukocytes) Negative Nitrite (test code = Nitrite) negative Urobilinogen (test code = 1 Urobilinogen) Protein (test code = Protein) 100 pH (test code = pH) 6.0 Blood (test code = Blood) Negative Specific [place] (test code = 1.030 Specific [place]) Ketone (test code = Ketone) Trace Bilirubin (test code = Bilirubin) Small Glucose (test code = Glucose) 100 Appearance (test code = Appearance) Clear Color (test code = Color) [facility] - [id number] 08:50:00 Test Item Value Reference Range Interpretation Comments white blood count (test code = 8.9 K/uL 4.0-11.5 white blood count) red blood count (test code = red 4.03 M/uL 3.80-5.20 blood count) hemoglobin (test code = 10.8 g/dL 10.5-15.7 hemoglobin) hematocrit (test code = 34.4 % 34.0-50.0 hematocrit) Erythrocyte mean corpuscular 85.4 fL 86-100 L volume [Entitic volume] (test code = 13398-8) mean corpuscular hemoglobin (test 26.8 pg 26.2-33.4 code = mean corpuscular hemoglobin) mean corpuscular HGB conc (test 31.4 g/dL 30-34 code = mean corpuscular HGB conc) red cell distribution width (test 14.0 % 12.0-15.5 code = red cell distribution width) platelet count (test code = 134 K/uL 165-450 L platelet count) mean platelet volume (test code = 12.7 fL 9.4-12.6 H mean platelet volume) Neutrophils.segmented/100 72.8 % 44.4-80.1 leukocytes in Blood (test code = 17562-1) Ig% (test code = Ig%) 1.1 % 0.0-0.4 H lymphocyte% (test code = 15.1 % 10.0-50.0 lymphocyte%) mono % (test code = mono %) 10.1 % 3.6-12.0 eos % (test code = eos %) 0.6 % 0.0-5.4 Basophils/100 leukocytes in 0.3 % 0.1-1.2 Unspecified specimen (test code = 70826-8) absolute neutrophil count (test 6.50 K/uL 1.56-6.13 H code = absolute neutrophil count) Ig# (test code = Ig#) 0.1 K/uL 0.0-0.03 H Lymphocytes [#/volume] in 1.4 K/uL 1.18-3.74 Unspecified specimen by Automated count (test code = 77446-2) mono # (test code = mono #) 0.90 K/uL 0.24-0.86 H eos # (test code = eos #) 0.05 K/uL 0.04-0.36 basophil # (test code = basophil 0.03 K/uL 0.01-0.08 #) NRBC% (test code = NRBC%) 0 /100 WBC 0-0.2 NRBC# (test code = NRBC#) 0 K/uL [facility] - Serum or Plasma 2019-04-01 08:50:00 Test Item Value Reference Range Interpretation Comments Glucose [Mass/volume] in Serum or 96 mg/dL 74-106 Plasma (test code = 2345-7) Urea nitrogen [Mass/volume] in 13 mg/dL 6-20 Serum or Plasma (test code = 3094-0) osmolality calculated, serum (test 270 280-300 L code = osmolality calculated, serum) creatinine (test code = 0.6 mg/dL 0.50-0.90 creatinine) glomerular filtration rate (test >60.00 code = glomerular filtration rate) Urea nitrogen/Creatinine [Mass 21.7 12-20 H Ratio] in Serum or Plasma (test code = 3097-3) sodium level (test code = sodium 135 mmol/L 135-145 level) potassium level (test code = 4.1 mmol/L 3.5-5.2 potassium level) chloride level (test code = 102 mmol/L 98-108 chloride level) CO2 (test code = CO2) 21 mmol/L 21-32 anion gap (test code = anion gap) 16.1 mEq/L 12-20 calcium level (test code = calcium 9.6 mg/dL 8.6-10.0 level) total protein (test code = total 7.0 g/dL 6.6-8.7 protein) albumin (test code = albumin) 3.7 g/dL 3.5-5.2 globulin (test code = globulin) 3.3 gm/dL A/G ratio (test code = A/G ratio) 1.1 >1.0 bilirubin,total (test code = 0.6 mg/dL 0.0-1.2 bilirubin,total) AST/SGOT (test code = AST/SGOT) 30 U/L 15-32 Alanine aminotransferase 9 U/L 0-33 [Enzymatic activity/volume] in Serum or Plasma (test code = 1742-6) Alkaline phosphatase [Enzymatic 207 U/L 35-105 H activity/volume] in Serum or Plasma (test code = 6768-6) [facility] [Mass/volume] in [id number] 08:50:00 Test Item Value Reference Range Interpretation Comments uric acid (test code = uric acid) 3.2 mg/dL 2.4-5.7 [facility]aksUrinalysis macro (dipstick) panel - [id number] 14:22:49 Test Item Value Reference Range Interpretation Comments Leukocytes (test code = Leukocytes) Negative Nitrite (test code = Nitrite) negative Urobilinogen (test code = .2 Urobilinogen) Protein (test code = Protein) 30 pH (test code = pH) 6.0 Blood (test code = Blood) Negative Specific [place] (test code = 1.030 Specific [place]) Ketone (test code = Ketone) Negative Bilirubin (test code = Bilirubin) Negative Glucose (test code = Glucose) Negative Appearance (test code = Appearance) Clear Color (test code = Color) Yellow [facility]aks[facility]inalysis macro (dipstick) panel - [id number] 14:22:49 Test Item Value Reference Range Interpretation Comments Leukocytes (test code = Leukocytes) Negative Nitrite (test code = Nitrite) negative Urobilinogen (test code = .2 Urobilinogen) Protein (test code = Protein) 30 pH (test code = pH) 6.0 Blood (test code = Blood) Negative Specific [place] (test code = 1.030 Specific [place]) Ketone (test code = Ketone) Negative Bilirubin (test code = Bilirubin) Negative Glucose (test code = Glucose) Negative Appearance (test code = Appearance) Clear Color (test code = Color) Yellow [facility] (dipstick) panel - [id number] 14:22:49 Test Item Value Reference Range Interpretation Comments Leukocytes (test code = Leukocytes) Negative Nitrite (test code = Nitrite) negative Urobilinogen (test code = .2 Urobilinogen) Protein (test code = Protein) 30 pH (test code = pH) 6.0 Blood (test code = Blood) Negative Specific [place] (test code = 1.030 Specific [place]) Ketone (test code = Ketone) Negative Bilirubin (test code = Bilirubin) Negative Glucose (test code = Glucose) Negative Appearance (test code = Appearance) Clear Color (test code = Color) Yellow [facility] GroupBacteria identified in Urine by [id number] 01:52:00 Test Item Value Reference Range Interpretation Comments Bacteria identified in no growth after 2 Urine by Culture (test days code = 630-4) [facility] GroupBacteria identified in Urine by [id number] 01:52:00 Test Item Value Reference Range Interpretation Comments Bacteria identified in no growth after 2 Urine by Culture (test days code = 630-4) [facility] Group[facility]ysis macro (dipstick) panel - [id number] 14:22:44 Test Item Value Reference Range Interpretation Comments Leukocytes (test code = Leukocytes) Negative Nitrite (test code = Nitrite) negative Urobilinogen (test code = 2 Urobilinogen) Protein (test code = Protein) 30 pH (test code = pH) 6.0 Blood (test code = Blood) Negative Specific [place] (test code = 1.030 Specific [place]) Ketone (test code = Ketone) Trace Bilirubin (test code = Bilirubin) Small Glucose (test code = Glucose) Negative Appearance (test code = Appearance) Clear Color (test code = Color) Yellow [facility] GroupUr[facility]ysis macro (dipstick) panel - [id number] 14:22:44 Test Item Value Reference Range Interpretation Comments Leukocytes (test code = Leukocytes) Negative Nitrite (test code = Nitrite) negative Urobilinogen (test code = 2 Urobilinogen) Protein (test code = Protein) 30 pH (test code = pH) 6.0 Blood (test code = Blood) Negative Specific [place] (test code = 1.030 Specific [place]) Ketone (test code = Ketone) Trace Bilirubin (test code = Bilirubin) Small Glucose (test code = Glucose) Negative Appearance (test code = Appearance) Clear Color (test code = Color) Yellow [facility] macro (dipstick) panel - [id number] 14:22:44 Test Item Value Reference Range Interpretation Comments Leukocytes (test code = Leukocytes) Negative Nitrite (test code = Nitrite) negative Urobilinogen (test code = 2 Urobilinogen) Protein (test code = Protein) 30 pH (test code = pH) 6.0 Blood (test code = Blood) Negative Specific [place] (test code = 1.030 Specific [place]) Ketone (test code = Ketone) Trace Bilirubin (test code = Bilirubin) Small Glucose (test code = Glucose) Negative Appearance (test code = Appearance) Clear Color (test code = Color) Yellow [facility]aksDRUGS [facility] ABU[facility] [id number] 20:55:00 Test Item Value Reference Range Interpretation Comments UR COCAINE (test code = NEGATIVE NEGATIVE DETE CTION CUT OFF: COCAU) 150 ng/mL UR CANNABINOIDS (test NEGATIVE NEGATIVE DETECT ION CUT OFF: code = CANU) 50 ng/mL UR AMPHETAMINE (test code NEGATIVE NEGATIVE DE TECTION CUT OFF: = AMPHU) 500 ng/mL UR BARBITURATE QUAL (test NEGATIVE NEGATIVE DE TECTION CUT OFF: code = BARBQLU) 200 ng/mL UR BENZODIAZEPINE (test NEGATIVE NEGATIVE DETE CTION CUT OFF: code = BENZU) 150 ng/mL UR OPIATES QUAL (test NEGATIVE NEGATIVE DETECT ION CUT OFF: code = OPIAQLU) 100 ng/mL UR PHENCYCLIDINE (PCP) NEGATIVE NEGATIVE DETEC TION CUT OFF: (test code = PHENCU) 25 ng/m L AG HEPATITIS B [id number] 20:50:00 Test Item Value Reference Range Interpretation Comments AG HEPATITIS B SURFACE (test code NONREACTIVE NONREACTIVE = HBSAG) AB HEPATITIS C [id number] 20:50:00 Test Item Value Reference Range Interpretation Comments AB HEPATITIS C (test code = NONREACTIVE NONREACTIVE HCVAB) SIGNAL TO CUTOFF (test code = 0.04 <0.80 N CUTOFF) RUBELLA [id number] 20:50:00 Test Item Value Reference Range Interpretation Comments RUBELLA SCREEN 168.6 IUnit/ml Results >10 .0IUnits/ml (test code = are considered positive RUBSC) inaccordance wi th the CLSI guidelines and based on the [employer] S tandard for Anti-Rubell a serum as anindicator of immune status and a br eakpoint to detect mostseropositiv e persons. AB [id number] 20:50:00 Test Item Value Reference Range Interpretation Comments AB TREPONEMA (test code = TREPAB) NONREACTIVE NONREACTIVE AG HEPATITIS B [id number] 20:15:00 Test Item Value Reference Range Interpretation Comments AG HEPATITIS B SURFACE (test code NONREACTIVE NONREACTIVE = HBSAG) AB HEPATITIS C [id number] 20:15:00 Test Item Value Reference Range Interpretation Comments AB HEPATITIS C (test code = HCVAB) NONREACTIVE SIGNAL TO CUTOFF (test code = CUTOFF) <0.80 RUBELLA [id number] 20:15:00 Test Item Value Reference Range Interpretation Comments RUBELLA SCREEN 168.6 IUnit/ml Results >10 .0IUnits/ml (test code = are considered positive RUBSC) inaccordance wi th the CLSI guidelines and based on the [employer] S tandard for Anti-Rubell a serum as anindicator of immune status and a br eakpoint to detect mostseropositiv e persons. AB [id number] 20:15:00 Test Item Value Reference Range Interpretation Comments AB TREPONEMA (test code = TREPAB) NONREACTIVE NONREACTIVE AG HEPATITIS B [id number] 20:10:00 Test Item Value Reference Range Interpretation Comments AG HEPATITIS B SURFACE (test code = NONREACTIVE HBSAG) AB HEPATITIS C [id number] 20:10:00 Test Item Value Reference Range Interpretation Comments AB HEPATITIS C (test code = HCVAB) NONREACTIVE SIGNAL TO CUTOFF (test code = CUTOFF) <0.80 RUBELLA [id number] 20:10:00 Test Item Value Reference Range Interpretation Comments RUBELLA SCREEN 168.6 IUnit/ml Results >10 .0IUnits/ml (test code = are considered positive RUBSC) inaccordance wi th the CLSI guidelines and based on the [employer] S tandard for Anti-Rubell a serum as anindicator of immune status and a br eakpoint to detect mostseropositiv e persons. AB [id number] 20:10:00 Test Item Value Reference Range Interpretation Comments AB TREPONEMA (test code = TREPAB) NONREACTIVE [id number] 19:38:00 Test Item Value Reference Range Interpretation Comments MAGNESIUM (test code = MAG) 4.1 mg/dL 1.8-2.4 H URINALYSIS [id number] 19:34:00 Test Item Value Reference Range Interpretation Comments UA COLOR (test code = COLU) YELLOW YELLOW UA APPEARANCE (test code = CLEAR CLEAR APPU) UA GLUCOSE DIPSTICK (test code 1+ NEG A = DGLUU) UA BILIRUBIN DIPSTICK (test NEGATIVE NEG code = BILU) UA KETONE DIPSTICK (test code 2+ NEG A = KETU) UA SPECIFIC GRAVITY (test code 1.028 1.001-1.035 N = SGU) UA BLOOD DIPSTICK (test code = NEG NEG BENJAMIN) UA PH DIPSTICK (test code = 5.0 5-9 ED) UA PROTEIN DIPSTICK (test code NEGATIVE NEG = PROU) UA UROBILINIOGEN DIPSTICK NEGATIVE mg/dL NEG (test code = URO) UA NITRITE DIPSTICK (test code NEG NEG = KAYLA) UA LEUKOCYTE ESTERASE DIPSTICK NEG NEG (test code = LEUU) UA WBC (test code = WBCU) 0-2 #/hpf NONE SEEN UA RBC (test code = RBCU) 0-2 #/hpf NONE SEEN UA EPITHELIAL CELLS (test code RARE #/HPF RARE-FEW = EPIU) UA BACTERIA (test code = BACU) NEGATIVE /HPF RARE-FEW UA MUCUS (test code = MUCU) 1+ NONE SEEN URINE SAMPLE: URINE BAGCBC W/AUTO [id number] 19:07:00 Test Item Value Reference Range Interpretation Comments WHITE BLOOD CELL (test code = WBC) 7.5 K/mm3 6.6-12.1 N RED BLOOD CELL (test code = RBC) 3.77 M/mm3 3.45-5.01 N HEMOGLOBIN (test code = HGB) 11.0 g/dL 10.7-13.9 N HEMATOCRIT (test code = HCT) 34.0 % 32.1-42.1 N MEAN CELL VOLUME (test code = MCV) 90 fL 84.1-94.8 N MEAN CELL HGB (test code = MCH) 29.2 pg 27-35 N MEAN CELL HGB CONCETRATION (test 32.4 gm/dL 32.2-34.1 N code = MCHC) RED CELL DISTRIBUTION WIDTH (test 13.1 % 12.4-16.5 N code = RDW) PLATELET COUNT (test code = PLT) 136 K/mm3 133-385 N IMMATURE PLATELET FRACTION (test 0.0 % 0.0-10.8 N code = IPF) MEAN PLATELET VOLUME (test code = 12.1 fl 9.1-12.7 N MPV) NEUTROPHIL % (test code = NT%) 92.4 % 56.5-79.4 H LYMPHOCYTE % (test code = LY%) 3.1 % 14.3-34.3 L MONOCYTE % (test code = MO%) 3.1 % 5.1-10.4 L EOSINOPHIL % (test code = EO%) 0.0 % 0.1-3.0 L BASOPHIL % (test code = BA%) 0.1 % 0.1-1.0 N NEUTROPHIL # (test code = NT#) 7.0 K/mm3 LYMPHOCYTE # (test code = LY#) 0.2 K/mm3 MONOCYTE # (test code = MO#) 0.2 K/mm3 EOSINOPHIL # (test code = EO#) 0 K/mm3 BASOPHIL # (test code = BA#) 0.0 K/mm3 RBC MORPHOLOGY REQUIRED (test code NORMAL NORMAL = RBCM) PLATELET MORPHOLOGY REQUIRED (test NORMAL NORMAL code = PLTMR) Glucose tolerance 3 hours panel - Serum or [id number] 11:04:00 Test Item Value Reference Range Interpretation Comments Results (test code = fasting 75; 1hr 170; Results) 2nd hr 163 [facility] hours panel - Serum or Plasma 2019-02-01 11:04:00 Test Item Value Reference Range Interpretation Comments Results (test code = fasting 75; 1hr 170; Results) 2nd hr 163 [facility]Glucose tolerance 3 hours panel - Serum or Plasma 2019-02-01 11:04:00 Test Item Value Reference Range Interpretation Comments Results (test code = fasting 75; 1hr 170; Results) 2nd hr 163 [facility]aksUrinalysis macro (dipstick) panel - [id number] 08:36:32 Test Item Value Reference Range Interpretation Comments Leukocytes (test code = Leukocytes) Small Nitrite (test code = Nitrite) negative Urobilinogen (test code = 1 Urobilinogen) Protein (test code = Protein) Trace pH (test code = pH) 6.5 Blood (test code = Blood) Negative Specific [place] (test code = 1.025 Specific [place]) Ketone (test code = Ketone) Negative Bilirubin (test code = Bilirubin) Negative Glucose (test code = Glucose) Negative Appearance (test code = Appearance) Clear Color (test code = Color) Yellow [facility]aksUrinalysis macro (dipstick) panel - [id number] 08:36:32 Test Item Value Reference Range Interpretation Comments Leukocytes (test code = Leukocytes) Small Nitrite (test code = Nitrite) negative Urobilinogen (test code = 1 Urobilinogen) Protein (test code = Protein) Trace pH (test code = pH) 6.5 Blood (test code = Blood) Negative Specific [place] (test code = 1.025 Specific [place]) Ketone (test code = Ketone) Negative Bilirubin (test code = Bilirubin) Negative Glucose (test code = Glucose) Negative Appearance (test code = Appearance) Clear Color (test code = Color) Yellow [facility]aksUrinalysis macro (dipstick) panel - [id number] 08:36:32 Test Item Value Reference Range Interpretation Comments Leukocytes (test code = Leukocytes) Small Nitrite (test code = Nitrite) negative Urobilinogen (test code = 1 Urobilinogen) Protein (test code = Protein) Trace pH (test code = pH) 6.5 Blood (test code = Blood) Negative Specific [place] (test code = 1.025 Specific [place]) Ketone (test code = Ketone) Negative Bilirubin (test code = Bilirubin) Negative Glucose (test code = Glucose) Negative Appearance (test code = Appearance) Clear Color (test code = Color) Yellow [facility]aksGlucose [Mass/volume] in Serum or Plasma --1 hour post dose [id number] 16:42:00 Test Item Value Reference Range Interpretation Comments Results (test code = Results) 155 [facility]aksGlucose [Mass/volume] in Serum or Plasma --1 hour post dose [id number] 16:42:00 Test Item Value Reference Range Interpretation Comments Results (test code = Results) 155 [facility]aksUrinalysis macro (dipstick) panel - [id number] 15:13:48 Test Item Value Reference Range Interpretation Comments Leukocytes (test code = Leukocytes) Negative Nitrite (test code = Nitrite) negative Urobilinogen (test code = .2 Urobilinogen) Protein (test code = Protein) Negative pH (test code = pH) 7.0 Blood (test code = Blood) Negative Specific [place] (test code = 1.010 Specific [place]) Ketone (test code = Ketone) Negative Bilirubin (test code = Bilirubin) Negative Glucose (test code = Glucose) Negative Appearance (test code = Appearance) Clear Color (test code = Color) Yellow [facility]aksUrinalysis macro (dipstick) panel - [id number] 15:13:48 Test Item Value Reference Range Interpretation Comments Leukocytes (test code = Leukocytes) Negative Nitrite (test code = Nitrite) negative Urobilinogen (test code = .2 Urobilinogen) Protein (test code = Protein) Negative pH (test code = pH) 7.0 Blood (test code = Blood) Negative Specific [place] (test code = 1.010 Specific [place]) Ketone (test code = Ketone) Negative Bilirubin (test code = Bilirubin) Negative Glucose (test code = Glucose) Negative Appearance (test code = Appearance) Clear Color (test code = Color) Yellow [facility]aksUrinalysis macro (dipstick) panel - [id number] 15:13:48 Test Item Value Reference Range Interpretation Comments Leukocytes (test code = Leukocytes) Negative Nitrite (test code = Nitrite) negative Urobilinogen (test code = .2 Urobilinogen) Protein (test code = Protein) Negative pH (test code = pH) 7.0 Blood (test code = Blood) Negative Specific [place] (test code = 1.010 Specific [place]) Ketone (test code = Ketone) Negative Bilirubin (test code = Bilirubin) Negative Glucose (test code = Glucose) Negative Appearance (test code = Appearance) Clear Color (test code = Color) Yellow [facility] panel - [id number] 10:42:58 Test Item Value Reference Range Interpretation Comments Leukocytes (test code = Leukocytes) Trace Nitrite (test code = Nitrite) negative Urobilinogen (test code = .2 Urobilinogen) Protein (test code = Protein) Trace pH (test code = pH) 6.0 Blood (test code = Blood) Negative Specific [place] (test code = 1.025 Specific [place]) Ketone (test code = Ketone) Trace Bilirubin (test code = Bilirubin) Negative Glucose (test code = Glucose) Negative Appearance (test code = Appearance) Clear Color (test code = Color) Yellow [facility]aksUrinalysis macro (dipstick) panel - [id number] 14:20:04 Test Item Value Reference Range Interpretation Comments Leukocytes (test code = Leukocytes) Negative Nitrite (test code = Nitrite) negative Urobilinogen (test code = .2 Urobilinogen) Protein (test code = Protein) Trace pH (test code = pH) 6.0 Blood (test code = Blood) Negative Specific [place] (test code = 1.020 Specific [place]) Ketone (test code = Ketone) Small Bilirubin (test code = Bilirubin) Negative Glucose (test code = Glucose) Negative Appearance (test code = Appearance) Clear Color (test code = Color) Yellow [facility]aksUrinalysis macro (dipstick) panel - [id number] 14:20:04 Test Item Value Reference Range Interpretation Comments Leukocytes (test code = Leukocytes) Negative Nitrite (test code = Nitrite) negative Urobilinogen (test code = .2 Urobilinogen) Protein (test code = Protein) Trace pH (test code = pH) 6.0 Blood (test code = Blood) Negative Specific [place] (test code = 1.020 Specific [place]) Ketone (test code = Ketone) Small Bilirubin (test code = Bilirubin) Negative Glucose (test code = Glucose) Negative Appearance (test code = Appearance) Clear Color (test code = Color) Yellow [facility] (dipstick) panel - [id number] 16:45:00 Test Item Value Reference Range Interpretation Comments Leukocytes (test code = Leukocytes) Negative Nitrite (test code = Nitrite) negative Urobilinogen (test code = .2 Urobilinogen) Protein (test code = Protein) Negative pH (test code = pH) 6.5 Blood (test code = Blood) Negative Specific [place] (test code = 1.005 Specific [place]) Ketone (test code = Ketone) Negative Bilirubin (test code = Bilirubin) Negative Glucose (test code = Glucose) Negative Appearance (test code = Appearance) Clear Color (test code = Color) Yellow [facility] W Auto Differential panel - [id number] 03:14:00 Test Item Value Reference Range Interpretation Comments white blood count (test code = 10.6 K/uL 4.0-11.5 white blood count) red blood count (test code = red 4.12 M/uL 3.80-5.20 blood count) Hemoglobin [Mass/volume] in Blood 13.1 g/dL 10.5-15.7 (test code = 718-7) hematocrit (test code = hematocrit) 39.4 % 34.0-50.0 Erythrocyte mean corpuscular volume 95.7 fL 78-98 [Entitic volume] (test code = 82131-2) Erythrocyte mean corpuscular 31.9 pg 26.2-33.4 hemoglobin [Entitic mass] (test code = 60106-6) mean corpuscular HGB conc (test 33.3 g/dL 31.5-36.2 code = mean corpuscular HGB conc) red cell distribution width (test 12.1 % 11.5-15.5 code = red cell distribution width) Platelets [#/volume] in Blood (test 198 K/uL 137-338 code = 67947-9) Platelet mean volume [Entitic 10.3 fL 8.4-11.8 volume] in Blood (test code = 79575-4) Neutrophils.band form/100 68.8 % 44.4-80.1 leukocytes in Blood (test code = 38915-3) Lymphocytes/100 leukocytes in Body 21.8 % 10.0-50.0 fluid (test code = 67608-4) Monocytes/100 leukocytes in Blood 7.2 % 3.6-12.04 by Automated count (test code = 5905-5) Eosinophils/100 leukocytes in Blood 1.1 % 0.0-5.41 by Automated count (test code = 713-8) Basophils/100 leukocytes in Blood 1.0 % 0.0-0.79 H by Automated count (test code = 706-2) [facility] Groupdifferential panel, [id number] 03:14:00 NeutrophilsBandLymphocyteAtypical LymphMonocyteEosinophilBasophilPlatelet EstimatePlatelet MorphologyTarget CellsToxic GranulationHypersegmented PolysToxic VacuolationMawellmont lonesome pine [facility]. [facility] Medical GroupRubella virus Ab [Titer] in Serum 2018-09-15 03:14:00 Test Item Value Reference Range Interpretation Comments Rubella virus IgG Ab 384.5 [IU]/mL [Units/volume] in Serum by Immunoassay (test code = 5334-8) [facility] GroupABO & Rh group [Type] in [id number] 03:14:00 Test Item Value Reference Range Interpretation Comments Rh [Type] in Blood (test code = 4+ 80395-5) ABO and Rh group panel - Blood O positive (test code = 15156-6) [facility] antibody screen [Presence] in Serum or Plasma 2018-09-15 03:14:00 Test Item Value Reference Range Interpretation Comments Blood group antibody screen negative [Presence] in Serum or Plasma (test code = 890-4) [facility] GroupHIV 1+2 Ab [Presence] in [id number] 03:14:00HIV P24 AgHIV-1/2 AbMaAurora West [facility] GroupBacteria identified in Urine by Culture 2018-09-15 03:14:00Bacteria Ur CultThe [facility] GroupReagin Ab [Presence] in Serum by [id number] 03:14:00 Test Item Value Reference Range Interpretation Comments Reagin Ab [Presence] in Serum by nonreactive nonreactive RPR (test code = 79265-5) [facility] [Presence] in Serum 2018-09-15 03:14:00 Test Item Value Reference Range Interpretation Comments .hepatitis B surface antigen (test negative negative code = .hepatitis B surface antigen) [facility]
--- NOTE | 2022-01-09 07:37 | ER ---
Nurse's Notes [facility] Name: Iram Greco Age: 31 yrs Sex: Female : 1990 Arrival Date: 01/09/2022 Time: 07:31 Bed Waiting Private MD: Diagnosis: UTI/ Urinary tract infection, site not specified Presentation: 01/09 07:36 Chief complaint: Patient states: urine urgency and pain X 4 days. Coronavirus screen: iw At this time, the client does not indicate any symptoms associated with coronavirus-19. Ebola Screen: Patient negative for fever greater than or equal to 101.5 degrees Fahrenheit, and additional compatible Ebola Virus Disease symptoms Patient denies exposure to infectious person. Patient denies travel to an Ebola-affected area in the 21 days before illness onset. No symptoms or risks identified at this time. Initial Sepsis Screen: Does the patient meet any 2 criteria? No. Patient's initial sepsis screen is negative. Does the patient have a suspected source of infection? No. Patient's initial sepsis screen is negative. Risk Assessment: Do you want to hurt yourself or someone else? Patient reports no desire to harm self or others. Onset of symptoms was January 05, 2022. 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 - Social history:: Smoking status: Patient denies any tobacco usage or history of. Screenin:38 Abuse screen: Denies threats or abuse. Denies injuries from another. Nutritional iw screening: No deficits noted. Tuberculosis screening: No symptoms or risk factors identified. Fall Risk None identified. Assessment: 07:38 General: Appears in no apparent distress. Behavior is calm, cooperative. Neuro: iw Maria Agitation-Sedation Scale (RASS): Level of Consciousness is awake, alert, obeys commands, Oriented to person, place, time, situation. : Reports pain with urination, urinary frequency. Vital Signs: 07:36 BP 139 / 93; Pulse 67; Resp 16; Pulse Ox 100% on R/A; Weight 58.97 kg; Height 5 ft. 1 iw in. (154.94 cm); 07:36 Body Mass Index 24.56 (58.97 kg, 154.94 cm) iw ED Course: 07:31 Patient arrived in ED. mr 07:31 Rome Morales DO is Attending Physician. ms3 07:36 Ignacia Casey, RN is Primary Nurse. iw 07:37 Triage completed. iw 07:37 Josef Frank DO is Referral Physician. ms3 07:38 Arm band placed on. iw 07:38 No provider procedures requiring assistance completed. Patient did not have IV access iw during this emergency room visit. 07:43 Patient has correct armband on for positive identification. iw Administered Medications: No medications were administered Medication: 07:43 VIS not applicable for this client. iw Outcome: 07:37 Discharge ordered by MD. ms3 07:43 Discharged to home ambulatory. iw 07:43 Condition: good 07:43 Discharge instructions given to patient, Instructed on discharge instructions, follow up and referral plans. medication usage, Demonstrated understanding of instructions, follow-up care, medications, Prescriptions given X 2. 07:43 Patient left the ED. iw Signatures: Irlanda Falcon mr Ignacia Casey, RN RN iw Rome Morales DO DO ms3
[2022-01-09 07:53] VITALS: BP 139/93; O2SAT 100
--- NOTE | 2022-01-10 07:44 | EDPHYS ---
Physician Documentation [facility] Name: Iram Greco Age: 31 yrs Sex: Female : 1990 Arrival Date: 01/09/2022 Time: 07:31 Bed Waiting Private MD: ED Physician Rome Morales HPI: 01/09 07:37 This 31 yrs old Female presents to ER via Ambulatory with complaints of ms3 Urinary Problem. 07:37 The patient presents with urinary symptoms, dysuria, frequency, hematuria. ms3 07:37 Onset: The symptoms/episode began/occurred 4 day(s) ago. Modifying factors: The ms3 symptoms are alleviated by nothing, the symptoms are aggravated by nothing. Associated signs and symptoms: Pertinent positives: nausea, Pertinent negatives: vomiting. Severity of symptoms: At their worst the symptoms were moderate, in the emergency department the symptoms are unchanged. COGNOS: 07:37 LMP 12/22/2021 iw Historical: - Allergies: 07:37 NKDA; iw - PMHx: 07:37 None; iw - PSHx: 07:37 None; iw - Immunization history:: Client reports having NOT received the Covid vaccine. - Social history:: Smoking status: Patient denies any tobacco usage or history of. ROS: 07:37 Constitutional: Negative for fever, and chills. ENT: Negative for injury, pain, and ms3 discharge, Cardiovascular: Negative for chest pain, and palpitations. Respiratory: Negative for shortness of breath, cough, wheezing, and pleuritic chest pain, Abdomen/GI: Negative for abdominal pain, nausea, vomiting, diarrhea, and constipation, : dysuria, hematuria MS/Extremity: Negative for injury and deformity, Skin: Negative for injury, rash, and discoloration, Psych: Negative for depression, anxiety, suicide ideation, homicidal ideation, and hallucinations. 07:37 All other systems are negative. Exam: 07:37 Constitutional: This is a well developed, well nourished patient who is awake, alert, ms3 and in no acute distress. Neck: Trachea midline, no cervical lymphadenopathy. Supple, full range of motion without nuchal rigidity, or vertebral point tenderness. No Meningismus. Chest/axilla: Normal chest wall appearance and motion. Nontender with no deformity. Cardiovascular: Regular rate and rhythm with a normal S1 and S2. No gallops, murmurs, or rubs. Normal PMI, no JVD. No pulse deficits. Respiratory: Lungs have equal breath sounds bilaterally, clear to auscultation and percussion. No rales, rhonchi or wheezes noted. No increased work of breathing, no retractions or nasal flaring. Abdomen/GI: Soft, non-tender, with normal bowel sounds. No distension or tympany. No guarding or rebound. No evidence of tenderness throughout. Skin: Warm, dry with normal turgor. Normal color with no rashes, no lesions, and no evidence of cellulitis. MS/ Extremity: Pulses equal, no cyanosis. Neurovascular intact. Full, normal range of motion. Psych: Awake, alert, with orientation to person, place and time. Behavior, mood, and affect are within normal limits. Vital Signs: 07:36 BP 139 / 93; Pulse 67; Resp 16; Pulse Ox 100% on R/A; Weight 58.97 kg; Height 5 ft. 1 iw in. (154.94 cm); 07:36 Body Mass Index 24.56 (58.97 kg, 154.94 cm) iw MDM: 07:36 Patient medically screened. ms3 07:37 Differential diagnosis: urinary tract infection. Data reviewed: vital signs, nurses ms3 notes, and as a result, I will discharge patient. Counseling: I had a detailed discussion with the patient and/or guardian regarding: the historical points, exam findings, and any diagnostic results supporting the discharge/admit diagnosis, the need for outpatient follow up, to return to the emergency department if symptoms worsen or persist or if there are any questions or concerns that arise at home. ED course: Patient with s/sx of uncomplicated UTI. Discussed need for follow up with PMD in 2-3 days with patient. Patient understands/ agrees with plan. All questions answered. Return precautions given to include worsening symptoms, or any other concerns. . Administered Medications: No medications were administered Disposition Summary: 01/09/22 07:37 Discharge Ordered Location: Home ms3 Condition: Stable ms3 Diagnosis - UTI/ Urinary tract infection, site not specified ms3 Followup: ms3 - With: Josef Frank, DO - When: 2 - 3 days - Reason: Recheck today's complaints Discharge Instructions: - Discharge Summary Sheet ms3 - Urinary Tract Infection, Adult ms3 Forms: - Medication Reconciliation Form ms3 - Work release form iw - Thank You Letter ms3 - Antibiotic Education ms3 - Prescription Opioid Use ms3 Prescriptions: - Pyridium 200 mg Oral Tablet - take 1 tablet by ORAL route every 8 hours for 3 days; 9 tablet; Refills: 0, ms3 Product Selection Permitted - cefpodoxime 100 mg Oral Tablet - take 1 tablet by ORAL route every 12 hours for 10 days take with food; 20 ms3 tablet; Refills: 0, Product Selection Permitted Signatures: Ignacia Casey, RN RN iw Rome Morales DO DO ms3
== END 2022-01-09 07:43 | disposition home or self-care (01) ==
LOC: ER 07:28
DX: N39.0 Urinary tract infection, site not specified (principal)
CPT/HCPCS: 99281

== ENCOUNTER 2023-06-01 14:10 | Emergency (ER) | payer OTHER, SELFPAY ==
--- OUTSIDE RECORDS SUMMARY | 2023-06-01 14:14 | XMS REPORT | Continuity of Care Document ---
:1990 Author Organization [facility] t Address [address] [facility] [address] [place] [address] Care Team Providers Name Role Phone Pcp, Patient Does Not Have A Primary Care Physician [id number] BANDAR Attending Clinician Unavailable G_Pappas Attending Clinician Unavailable JOCELYN HONG Attending Clinician Unavailable Doctor Unassigned, [place] Attending Clinician Unavailable UNKNOWN, ATTENDING Attending Clinician Unavailable CARMEN SHANKAR Attending Clinician Unavailable BANDAR Admitting Clinician Unavailable G_Pappastacie Admitting Clinician Unavailable Payers Payer Name Policy Type Policy Number Effective Date Expiration Date S [place] [id number] [place]) [facility] [id number] CHOICE (MEDICAID REPLACEMENT - H[place]) [place] [id number] [facility] (MEDICAID) MEDICAID [facility] [id number] 2020 00:00:00 [facility] [place] [facility] [id number] 2019 00:00:00 PHCS GENERIC [id number] 2012 00:00:00 [facility] [id number] 2012 2020 CHOICE MEDICAID 00:00:00 00:00:00 Problems Condition Condition Condition [...] Medical 00 Group Threatened Threatened Problem Active M [place] premature Premature 7 da labor - Labor - 00:00: Medical not Not 00 Group delivered Delivered Family Family Disease Active Overview: Univer s history of history of 11-30 Formattin ity of congenital congenital 00:00: g of this [place] anomalies anomalies 00 note [facility] might be Branch different from the original. 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 Surgicall y removed. Nausea Nausea Disease Active Univers 4-03 ity of 00:00: [place] [facility] Headache Headache Disease Active Overview: Un rachel 4-03 Formattin ity of 00:00: g of this [place] 00 note Medical might be Branch different from the original. 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 Social History Social Habit Start Date Stop Date Quantity Comments Source Sexual orientation [facility] History of Social 2020-08-17 2020-08-17 Univers ity of function 00:00:00 00:00:00 [facility] Exposure to 2020-03-28 2020-04-27 Not sure University of SARS-CoV-2 (event) 00:00:00 14:17:00 [facility] Alcohol intake 2020-01-19 2020-01-19 Current University 00:00:00 00:00:00 non-drinker of [facility] alcohol Branch (finding) Tobacco use and 2012-09-28 2012-09-28 Smokeless Universit y of exposure 00:00:00 00:00:00 tobacco non-user [facility] dical [place] Sex Assigned At [birth year] Universit y of 00:00:00 00:00:00 [facility] Smoking Status Start Date Stop Date Source Never smoked tobacco [facility] Medications Ordered Filled Start Stop Current Ordering Indication Dosage Frequency Signature Comments Components Source Medication Medication Date Date Medication? Clinician (SIG) Name Name dextrisao Yes [id number] 5mL Take 5 mL Univers rphan-guaif 5-07 by mouth ity of enesin 00:00: every 6 [place] (ROBITUSSIN 00 (six) Medical DM) 10-100 hours as Branc h mg/5 mL needed for solution Cough. pseudoephed Yes [id number] 60mg Take 1 Tab Univers rine 5-07 by mouth ity of (SUDAFED) 00:00: every 6 [place] 60 mg 00 (six) Medical tablet hours as Branch needed (allergies ). Yes [id number] 1{tbl} Take 1 Tab Univers multivitami 3-05 by mouth ity of n ( 00:00: [place]. [place] VITAMIN) 00 Medical tablet Branch Immunizations Ordered Immunization Filled Immunization Date Status Commen ts Source Name Name TD, NOS Unknown Completed [facility] Influenza Virus Unknown Completed Universit y of Vaccine - Whole [place] Med ical Branch Rubella Unknown Completed [facility] Varicella Unknown Completed [facility] (varivax)(chicken [place] M edical pox) Branch Vital Signs Vital Name Observation Time Observation Value Comments Source BP Diastolic 2020-10-25 00:00:00 78 mm[Hg] [facility] Height 2020-10-25 00:00:00 61 [in_i] [facility] BMI (Body Mass 2020-10-25 00:00:00 24.8 kg/m2 [facility] Index) Group BP Systolic 2020-10-25 00:00:00 129 mm[Hg] [facility] Body Weight 2020-10-25 00:00:00 131 [lb_av] [facility] BP Diastolic 2020-05-01 00:00:00 82 mm[Hg] [facility] Height 2020-05-01 00:00:00 61 [in_i] [facility] BMI (Body Mass 2020-05-01 00:00:00 23.8 kg/m2 [facility] political scientist Medical Index) Group BP Systolic 2020-05-01 00:00:00 138 mm[Hg] [facility] Body Weight 2020-05-01 00:00:00 126.1 [lb_av] [facility] BP Diastolic 2019-05-24 00:00:00 95 mm[Hg] [facility] Height 2019-05-24 00:00:00 61 [in_i] [facility] BMI (Body Mass 2019-05-24 00:00:00 24.8 kg/m2 [facility] political scientist Medical Index) Group BP Systolic 2019-05-24 00:00:00 127 mm[Hg] [facility] Body Weight 2019-05-24 00:00:00 131 [lb_av] [facility] BP Diastolic 2019-05-05 00:00:00 88 mm[Hg] [facility] Height 2019-05-05 00:00:00 61 [in_i] [facility] BMI (Body Mass 2019-05-05 00:00:00 24.6 kg/m2 [facility] political scientist Medical Index) Group BP Systolic 2019-05-05 00:00:00 132 mm[Hg] [facility] Body Weight 2019-05-05 00:00:00 130.4 [lb_av] [facility] BP Diastolic 2019-04-07 00:00:00 90 mm[Hg] [facility] Height 2019-04-07 00:00:00 61 [in_i] [facility] BMI (Body Mass 2019-04-07 00:00:00 27.7 kg/m2 [facility] political scientist Medical Index) Group BP Systolic 2019-04-07 00:00:00 136 mm[Hg] [facility] Body Weight 2019-04-07 00:00:00 146.8 [lb_av] [facility] BP Diastolic 2019-04-01 00:00:00 88 mm[Hg] [facility] Height 2019-04-01 00:00:00 61 [in_i] [facility] BMI (Body Mass 2019-04-01 00:00:00 27.5 kg/m2 [facility] Index) Group BP Systolic 2019-04-01 00:00:00 145 mm[Hg] [facility] Body Weight 2019-04-01 00:00:00 145.7 [lb_av] [facility] BP Diastolic 2019-03-17 00:00:00 72 mm[Hg] [facility] Height 2019-03-17 00:00:00 61 [in_i] [facility] BMI (Body Mass 2019-03-17 00:00:00 26.8 kg/m2 [facility] Index) Group BP Systolic 2019-03-17 00:00:00 115 mm[Hg] [facility] Body Weight 2019-03-17 00:00:00 141.7 [lb_av] [facility] BP Diastolic 2019-03-01 00:00:00 72 mm[Hg] [facility] Height 2019-03-01 00:00:00 61 [in_i] [facility] BMI (Body Mass 2019-03-01 00:00:00 26.3 kg/m2 [facility] Index) Group BP Systolic 2019-03-01 00:00:00 127 mm[Hg] [facility] Body Weight 2019-03-01 00:00:00 139.2 [lb_av] [facility] BP Diastolic 2019-02-14 00:00:00 73 mm[Hg] [facility] Height 2019-02-14 00:00:00 61 [in_i] [facility] BMI (Body Mass 2019-02-14 00:00:00 25.7 kg/m2 [facility] Index) Group BP Systolic 2019-02-14 00:00:00 125 mm[Hg] [facility] Body Weight 2019-02-14 00:00:00 135.9 [lb_av] [facility] BP Diastolic 2019-02-01 00:00:00 80 mm[Hg] [facility] Height 2019-02-01 00:00:00 61 [in_i] [facility] BMI (Body Mass 2019-02-01 00:00:00 26 kg/m2 [facility] Index) Group BP Systolic 2019-02-01 00:00:00 124 mm[Hg] [facility] Body Weight 2019-02-01 00:00:00 137.6 [lb_av] [facility] BP Diastolic 2019-01-28 00:00:00 80 mm[Hg] [facility] Height 2019-01-28 00:00:00 61 [in_i] [facility] BMI (Body Mass 2019-01-28 00:00:00 25.9 kg/m2 [facility] Index) Group BP Systolic 2019-01-28 00:00:00 124 mm[Hg] [facility] Body Weight 2019-01-28 00:00:00 137 [lb_av] [facility] BP Diastolic 2018-11-22 00:00:00 74 mm[Hg] [facility] Height 2018-11-22 00:00:00 61 [in_i] [facility] BMI (Body Mass 2018-11-22 00:00:00 24.2 kg/m2 [facility] Index) Group BP Systolic 2018-11-22 00:00:00 124 mm[Hg] [facility] Body Weight 2018-11-22 00:00:00 128.1 [lb_av] [facility] BP Diastolic 2018-11-15 00:00:00 77 mm[Hg] [facility] Height 2018-11-15 00:00:00 61 [in_i] [facility] BMI (Body Mass 2018-11-15 00:00:00 23.1 kg/m2 [facility] Index) Group BP Systolic 2018-11-15 00:00:00 [...] (Body Mass 2018-09-15 00:00:00 23.3 kg/m2 [facility] Index) Group BP Systolic 2018-09-15 00:00:00 132 mm[Hg] [facility] Body Weight 2018-09-15 00:00:00 123.5 [lb_av] [facility] Procedures Procedure Date / Time Performing Clinician Source Performed US(FBP)W/0 NON STRESS 2019-04-07 00:00:00 [facility] TEST Group US, obstetric, limited 2019-04-01 00:00:00 [facility] ord Medical Group US, obstetric, limited 2019-03-01 00:00:00 [facility] Group non-stress test 2019-02-14 00:00:00 [place] [facility] ULTRASOUND REPEAT 2019-02-01 00:00:00 [facility] US, obstetric, limited 2018-11-15 00:00:00 [facility] US, obstetric, nuchal 2018-10-13 00:00:00 [facility] translucency Group Plan of Care Planned Activity Planned Date Details Comments Source Diagnostic Test 2020-10-25 urinalysis, [place] [facility] Pending 00:00:00 dipstick [code = Group urinalysis, dipstick] Diagnostic Test 2020-10-25 test, [facility] Pending 00:00:00 urine [code = Group test, urine] Encounters Start End Encounter Admission Attending Care Care Encounter Source Date/Time Date/Time Type Type Clinicians Facility Department ID 2021-08-01 2021-08-01 Outpatient LISTER_GRACYI MEHOP MEHOP [id number] [place] 04:57:00 04:57:00 [facility] 2021-06-19 2021-06-19 Outpatient LISTER_MELI MEHOP MEHOP [id number] [place] 11:48:00 11:48:00 [facility] 2020-10-25 2020-10-25 Kyle G_Pappas [facility] [place] - [id number] [place] 00:00:00 00:00:00 Discovery Emelina 0401 morgan GONSALEZ: [address] [place] [address] , Ph. [phone] 2020-10-11 2020-10-11 Outpatient G_Pappas [facility] 2020 [place] 03:11:00 03:11:00 0318 [facility] 2020-09-03 2020-09-03 Outpatient JOCELYN STEINER [facility] [id number] Univers 10:30:00 10:30:00 [facility] 2020-08-27 2020-08-27 Outpatient JOCELYN STEINER [facility] [id number] Univers 10:30:00 10:30:00 [facility] 2020-08-20 2020-08-20 Outpatient LISTER_GRACYI HOP [facility] [id number] [place] 09:57:00 09:57:00 [facility] 2020-08-16 2020-08-16 Outpatient LISTER_MELI MEHOP MNHOP [id number] [place] 04:03:00 04:03:00 [facility] 0121 [facility] 2020-08-03 2020-08-03 Outpatient G[facility]app[facility] 2020 [place] 04:26:00 04:26:00 0108 [facility] 2020-06-13 2020-06-13 Outpatient G_Pappas [facility] 2019 [place] 02:47:00 02:47:00 1118 da Medical Group 2020-05-01 2020-05-01 Aleida Rouse G_Pappas [place] - 2019 [place] 00:00:00 00:00:00 Discovery Nacho 1006 da WHNP: [address] [address] , Ph. [phone] 2020-04-27 2020-04-27 Outpatient R [facility] [id number] Univers 15:00:00 15:00:00 ity [facility] 2020-02-07 2020-02-07 Patient Doctor EVERT [id number] Univers 00:00:00 00:00:00 Secure Msg Unassigned, PIPO [id number] [facility] [id number] Andrea as [phone] [address] 2020-02-05 2020-02-05 Outpatient R UNKNOWN, [facility] [id number] Univers 16:00:00 16:00:00 ATTENDING ity [facility] 2020-01-19 2020-01-19 Outpatient R RAAD, [facility] [id number] Univers 14:00:00 14:00:00 CARMEN [facility] 2020-01-05 2020-01-05 Outpatient G_Pappas [facility] 2019 [place] 03:26:00 03:26:00 0611 [facility] 2019-06-10 2019-06-10 Outpatient G_Pappas [facility] 2018 [place] 04:08:00 04:08:00 1115 da [facility] 2019-05-24 2019-05-24 [place] - [id number] [place] 00:00:00 00:00:00 Discovery Emelina 1029 morgan MD: [address] [address] , Ph. [phone] 2019-05-05 2019-05-05 [place] - [id number] [place] 00:00:00 00:00:00 Discovery Emelina 1010 da MD: [address] [place] [address], [place] [address] , Ph. [phone] 2019-04-07 2019-04-07 [place] - [id number] [place] 00:00:00 00:00:00 Discovery Emelina 0912 da MD: [address] [place] [address], [place] [address] , Ph. [phone] 2019-04-01 2019-04-01 [place] - [id number] [place] 00:00:00 00:00:00 Discovery Emelina 0906 morgan MD: [address] [place] [address], [place] [address] , Ph. [phone] 2019-03-17 2019-03-17 Aleida Rouse [facility] [place] - [id number] [place] 00:00:00 00:00:00 Discovery Nacho 0822 morgan WHNP: [address] [place] [address], [place] [address] , Ph. [phone] 2019-03-01 2019-03-01 [place] - [id number] [place] 00:00:00 00:00:00 Discovery Emelina 0806 morgan MD: [address] [place] [address], [place] [address] , Ph. [phone] 2019-02-14 2019-02-14 [place] - [id number] [place] 00:00:00 00:00:00 Discovery Emelina 0722 morgan MD: [address] [place] [address], [place] [address] , Ph. [phone] 2019-02-01 2019-02-01 [place] - [id number] [place] 00:00:00 00:00:00 Discovery Emelina 0709 morgan MD: [address] [address] , Ph. [phone] 2019-01-28 2019-01-28 Kyle [facility] [place] - [id number] [place] 00:00:00 00:00:00 Discovery Emelina 0705 morgan MD: [address] [place] [address] , Ph. [phone] 2018-11-22 2018-11-22 Aleida Rouse [facility] [place] - [id number] [place] 00:00:00 00:00:00 Discovery Nacho 0429 da WHNP: [address] [place] [address] , Ph. [phone] 2018-11-15 2018-11-15 Aleida Rouse [facility] [place] - [id number] [place] 00:00:00 00:00:00 Discovery Nacho 0422 da WHNP: [address] [place] [address] , Ph. [phone] 2018-10-13 2018-10-13 [facility] [place] - [id number] [place] 00:00:00 00:00:00 Isaac Neely0 Ariana Liu MD: [address] [place] [address] , Ph. [phone] 2018-09-15 2018-09-15 [facility] [place] [facility] [id number] [place] 00:00:00 00:00:00 Ariana Levine MD: [address] [place] [address] , Ph. [phone] Results Test Description Test Time Test Comments Results Result Comments Source test, urine 2020-10-25 10:31:45 Test Item Value Reference Range Interpretation Comme nts Test (test code = Test) negative [facility] macro (dipstick) panel - [id number] 10:26:07 Test Item Value Reference Range Interpretation Comments Leukocytes (test code = Negative Leukocytes) Nitrite (test code = negative Nitrite) Urobilinogen (test code = .2 Urobilinogen) Protein (test code = Negative Protein) pH (test code = pH) 5.5 Blood (test code = Blood) Hemolyzed: Trace Specific [place] (test code 1.030 = Specific [place]) Ketone (test code = Ketone) Negative Bilirubin (test code = Negative Bilirubin) Glucose (test code = Negative Glucose) Appearance (test code = Clear Appearance) Color (test code = Color) Yellow [facility] test, [id number] 13:22:27 Test Item Value Reference Range Interpretation Comments Test (test code = negative Test) [facility] macro (dipstick) panel - [id number] 11:02:00 Test Item Value Reference Range Interpretation Comments Leukocytes (test code = Leukocytes) Negative Nitrite (test code = Nitrite) negative Urobilinogen (test code = 1 Urobilinogen) Protein (test code = Protein) Negative pH (test code = pH) 5.5 Blood (test code = Blood) Negative Specific [place] (test code = 1.030 Specific [place]) Ketone (test code = Ketone) Negative Bilirubin (test code = Bilirubin) Negative Glucose (test code = Glucose) Negative Appearance (test code = Appearance) Clear Color (test code = Color) Yellow [facility] macro (dipstick) panel - [id number] 11:02:00 Test Item Value Reference Range Interpretation Comments Leukocytes (test code = Leukocytes) Negative Nitrite (test code = Nitrite) negative Urobilinogen (test code = 1 Urobilinogen) Protein (test code = Protein) Negative pH (test code = pH) 5.5 Blood (test code = Blood) Negative Specific [place] (test code = 1.030 Specific [place]) Ketone (test code = Ketone) Negative Bilirubin (test code = Bilirubin) Negative Glucose (test code = Glucose) Negative Appearance (test code = Appearance) Clear Color (test code = Color) Yellow [facility] UnitCB W Auto Differential panel - [id number] 09:05:00 Test Item Value Reference Range Interpretation [...] L volume [Entitic volume] (test code = 38648-4) mean corpuscular hemoglobin (test 26.1 pg 26.2-33.4 [...] 44.4-80.1 leukocytes in Blood (test code = 29783-7) Granulocytes Immature [#/volume] 0.1 K/uL 0.0-0.03 H in Blood (test code = 47440-5) lymphocyte% (test code = 20.0 % 10.0-50.0 lymphocyte%) mono % (test code = mono %) 7.7 % 3.6-12.0 eos % (test code = eos %) 1.7 % 0.0-5.4 Basophils/100 leukocytes in 0.3 % 0.1-1.2 Unspecified specimen (test code = 84695-2) Neutrophils.band form [#/volume] 6.47 K/uL 1.56-6.13 H in Blood (test code = 75657-1) Lymphocytes [#/volume] in 1.9 K/uL 1.18-3.74 Unspecified specimen by Automated count (test code = 33887-7) mono # (test code = mono #) 0.72 K/uL 0.24-0.86 eos # (test code = eos #) 0.16 K/uL 0.04-0.36 basophil # (test code = basophil 0.03 K/uL 0.01-0.08 #) NRBC% (test code = NRBC%) 0 /100 WBC 0-0.2 NRBC# (test code = NRBC#) 0 K/uL [facility] W Auto Differential panel - [id number] 04:40:00 Test Item Value Reference Range Interpretation [...] L volume [Entitic volume] (test code = 90516-8) mean corpuscular hemoglobin (test 26.3 pg 26.2-33.4 [...] 44.4-80.1 leukocytes in Blood (test code = 13120-4) Granulocytes Immature [#/volume] 0.1 K/uL 0.0-0.03 H in Blood (test code = 40268-0) lymphocyte% (test code = 21.3 % 10.0-50.0 lymphocyte%) mono % (test code = mono %) 10.5 % 3.6-12.0 eos % (test code = eos %) 1.8 % 0.0-5.4 Basophils/100 leukocytes in 0.3 % 0.1-1.2 Unspecified specimen (test code = 95241-7) Neutrophils.band form [#/volume] 4.83 K/uL 1.56-6.13 in Blood (test code = 98706-1) Lymphocytes [#/volume] in 1.6 K/uL 1.18-3.74 Unspecified specimen by Automated count (test code = 49223-1) mono # (test code = mono #) 0.78 K/uL 0.24-0.86 eos # (test code = eos #) 0.13 K/uL 0.04-0.36 basophil # (test code = basophil 0.02 K/uL 0.01-0.08 #) NRBC% (test code = NRBC%) 0 /100 WBC 0-0.2 NRBC# (test code = NRBC#) 0 K/uL [facility] UnitRe[facility] Ab [Presence] in Serum by [id number] 04:40:00 Test Item Value Reference Range Interpretation Comments Reagin Ab [Presence] in Serum by nonreactive nonreactive RPR (test code = 56765-4) [facility] UnitHepatitis B virus surface Ag [Presence] in Serum 2019-04-13 04:40:00 Test Item Value Reference Range Interpretation Comments .hepatitis B surface antigen (test negative negative code = .hepatitis B surface antigen) [facility] UnitFetal Biophysical profile panel [id number] 11:26:16 Test Item Value Reference Range Interpretation Comments Amniotic Fluid Index (test code = 2 (16.6) Amniotic Fluid Index) Tone (test code = Tone) 2 Breathing (test code = 2 Breathing) Movement (test code = 2 Movement) Non-Stress Test (test code = 2 Non-Stress Test) [facility] UnitFetal Biophysical profile panel [id number] 11:26:16 Test Item Value Reference Range Interpretation Comments Amniotic Fluid Index (test code = 2 (16.6) Amniotic Fluid Index) Tone (test code = Tone) 2 Breathing (test code = 2 Breathing) Movement (test code = 2 Movement) Non-Stress Test (test code = 2 Non-Stress Test) [facility] UnitUrinalysis macro (dipstick) panel - [id number] 11:01:27 Test Item Value Reference Range Interpretation Comments Leukocytes (test code = Leukocytes) Negative Nitrite (test code = Nitrite) negative Urobilinogen (test code = 1 Urobilinogen) Protein (test code = Protein) 100 pH (test code = pH) 5.5 Blood (test code = Blood) Negative Specific [place] (test code = 1.030 Specific [place]) Ketone (test code = Ketone) Small Bilirubin (test code = Bilirubin) Small Glucose (test code = Glucose) 100 Appearance (test code = Appearance) Clear Color (test code = Color) [place] [facility] UnitUrinalysis macro (dipstick) panel - [id number] 11:01:27 Test Item Value Reference Range Interpretation Comments Leukocytes (test code = Leukocytes) Negative Nitrite (test code = Nitrite) negative Urobilinogen (test code = 1 Urobilinogen) Protein (test code = Protein) 100 pH (test code = pH) 5.5 Blood (test code = Blood) Negative Specific [place] (test code = 1.030 Specific [place]) Ketone (test code = Ketone) Small Bilirubin (test code = Bilirubin) Small Glucose (test code = Glucose) 100 Appearance (test code = Appearance) Clear Color (test code = Color) [place] [facility] UnitUrinalysis macro (dipstick) panel - [id number] 10:25:10 Test Item Value Reference Range Interpretation Comments Leukocytes (test code = Leukocytes) Negative Nitrite (test code = Nitrite) negative Urobilinogen (test code = 1 Urobilinogen) Protein (test code = Protein) 100 pH (test code = pH) 6.0 Blood (test code = Blood) Negative Specific [place] (test code = 1.030 Specific [place]) Ketone (test code = Ketone) Trace Bilirubin (test code = Bilirubin) Small Glucose (test code = Glucose) 100 Appearance (test code = Appearance) Clear Color (test code = Color) Yellow [facility] UnitUrinalysis macro (dipstick) panel - [id number] 10:25:10 Test Item Value Reference Range Interpretation Comments Leukocytes (test code = Leukocytes) Negative Nitrite (test code = Nitrite) negative Urobilinogen (test code = 1 Urobilinogen) Protein (test code = Protein) 100 pH (test code = pH) 6.0 Blood (test code = Blood) Negative Specific [place] (test code = 1.030 Specific [place]) Ketone (test code = Ketone) Trace Bilirubin (test code = Bilirubin) Small Glucose (test code = Glucose) 100 Appearance (test code = Appearance) Clear Color (test code = Color) Yellow [facility] W Auto Differential panel - [id number] 08:50:00 Test Item Value Reference Range Interpretation Comments white blood count (test code = 8.9 K/uL 4.0-11.5 white blood count) red blood count (test code = red 4.03 M/uL 3.80-5.20 blood count) hemoglobin (test code = 10.8 g/dL 10.5-15.7 hemoglobin) hematocrit (test code = 34.4 % 34.0-50.0 hematocrit) Erythrocyte mean corpuscular 85.4 fL 86-100 L volume [Entitic volume] (test code = 64634-1) mean corpuscular hemoglobin (test 26.8 pg 26.2-33.4 [...] 44.4-80.1 leukocytes in Blood (test code = 47737-9) Ig% (test code = Ig%) 1.1 % 0.0-0.4 H lymphocyte% (test code = 15.1 % 10.0-50.0 lymphocyte%) mono % (test code = mono %) 10.1 % 3.6-12.0 eos % (test code = eos %) 0.6 % 0.0-5.4 Basophils/100 leukocytes in 0.3 % 0.1-1.2 Unspecified specimen (test code = 36066-1) absolute neutrophil count (test 6.50 K/uL 1.56-6.13 H code = absolute neutrophil count) Ig# (test code = Ig#) 0.1 K/uL 0.0-0.03 H Lymphocytes [#/volume] in 1.4 K/uL 1.18-3.74 Unspecified specimen by Automated count (test code = 29843-1) mono # (test code = mono #) 0.90 K/uL 0.24-0.86 H eos # (test code = eos #) 0.05 K/uL 0.04-0.36 basophil # (test code = basophil 0.03 K/uL 0.01-0.08 #) NRBC% (test code = NRBC%) 0 /100 WBC 0-0.2 NRBC# (test code = NRBC#) 0 K/uL [facility]Com[facility] 2000 panel - Serum or Plasma [...] Serum or Plasma (test code = 6768-6) [facility] UnitUrate [Mass/volume] in [id number] 08:50:00 Test Item Value Reference Range Interpretation Comments uric acid (test code = uric acid) 3.2 mg/dL 2.4-5.7 [facility] UnitUrinalysis macro (dipstick) panel - [id number] 14:22:49 Test Item Value Reference Range Interpretation Comments Leukocytes (test code = Leukocytes) Negative Nitrite (test code = Nitrite) negative Urobilinogen (test code = .2 Urobilinogen) Protein (test code = Protein) 30 pH (test code = pH) 6.0 Blood (test code = Blood) Negative Specific [place] (test code = 1.030 Specific [place]) Ketone (test code = Ketone) Negative Bilirubin (test code = Bilirubin) Negative Glucose (test code = Glucose) Negative Appearance (test code = Appearance) Clear Color (test code = Color) Yellow [facility] UnitUrinalysis macro (dipstick) panel - [id number] 14:22:49 Test Item Value Reference Range Interpretation Comments Leukocytes (test code = Leukocytes) Negative Nitrite (test code = Nitrite) negative Urobilinogen (test code = .2 Urobilinogen) Protein (test code = Protein) 30 pH (test code = pH) 6.0 Blood (test code = Blood) Negative Specific [place] (test code = 1.030 Specific [place]) Ketone (test code = Ketone) Negative Bilirubin (test code = Bilirubin) Negative Glucose (test code = Glucose) Negative Appearance (test code = Appearance) Clear Color (test code = Color) Yellow [facility] UnitUrinalysis macro (dipstick) panel - [id number] 14:22:49 Test Item Value Reference Range Interpretation Comments Leukocytes (test code = Leukocytes) Negative Nitrite (test code = Nitrite) negative Urobilinogen (test code = .2 Urobilinogen) Protein (test code = Protein) 30 pH (test code = pH) 6.0 Blood (test code = Blood) Negative Specific [place] (test code = 1.030 Specific [place]) Ketone (test code = Ketone) Negative Bilirubin (test code = Bilirubin) Negative Glucose (test code = Glucose) Negative Appearance (test code = Appearance) Clear Color (test code = Color) Yellow [facility] GroupBacteria identified in Urine by [id number] 01:52:00 Test Item Value Reference Range Interpretation Comments Bacteria identified in no growth after 2 Urine by Culture (test days code = 630-4) [facility] GroupBacteria identified in Urine by [id number] 01:52:00 Test Item Value Reference Range Interpretation Comments Bacteria identified in no growth after 2 Urine by Culture (test days code = 630-4) [facility] GroupUrinalysis macro (dipstick) panel - [id number] 14:22:44 Test Item Value Reference Range Interpretation Comments Leukocytes (test code = Leukocytes) Negative Nitrite (test code = Nitrite) negative Urobilinogen (test code = 2 Urobilinogen) Protein (test code = Protein) 30 pH (test code = pH) 6.0 Blood (test code = Blood) Negative Specific [place] (test code = 1.030 Specific [place]) Ketone (test code = Ketone) Trace Bilirubin (test code = Bilirubin) Small Glucose (test code = Glucose) Negative Appearance (test code = Appearance) Clear Color (test code = Color) Yellow [facility] UnitUrinalysis macro (dipstick) panel - [id number] 14:22:44 Test Item Value Reference Range Interpretation Comments Leukocytes (test code = Leukocytes) Negative Nitrite (test code = Nitrite) negative Urobilinogen (test code = 2 Urobilinogen) Protein (test code = Protein) 30 pH (test code = pH) 6.0 Blood (test code = Blood) Negative Specific [place] (test code = 1.030 Specific [place]) Ketone (test code = Ketone) Trace Bilirubin (test code = Bilirubin) Small Glucose (test code = Glucose) Negative Appearance (test code = Appearance) Clear Color (test code = Color) Yellow [facility] GroupUrinal[facility] macro (dipstick) panel - [id number] 14:22:44 Test Item Value Reference Range Interpretation Comments Leukocytes (test code = Leukocytes) Negative Nitrite (test code = Nitrite) negative Urobilinogen (test code = 2 Urobilinogen) Protein (test code = Protein) 30 pH (test code = pH) 6.0 Blood (test code = Blood) Negative Specific [place] (test code = 1.030 Specific [place]) Ketone (test code = Ketone) Trace Bilirubin (test code = Bilirubin) Small Glucose (test code = Glucose) Negative Appearance (test code = Appearance) Clear Color (test code = Color) Yellow [facility] UnitDRUGS OF ABUSE [id number] 20:55:00 Test Item Value Reference Range Interpretation [...] PHENCU) 25 ng/m L AG HEPATITIS B [id number] 20:50:00 Test Item Value Reference Range Interpretation Comments AG HEPATITIS B SURFACE (test code NONREACTIVE NONREACTIVE = HBSAG) AB HEPATITIS C [id number] 20:50:00 Test Item Value Reference Range Interpretation Comments AB HEPATITIS C (test code = NONREACTIVE NONREACTIVE HCVAB) SIGNAL TO CUTOFF (test code = 0.04 <0.80 N CUTOFF) RUBELLA [id number] 20:50:00 Test Item Value Reference Range Interpretation Comments RUBELLA SCREEN 168.6 IUnit/ml Results >10 .0IUnits/ml (test code = are considered positive RUBSC) inaccordance wi th the CLSI guidelines and based on the [employer] S tandard for Anti-Rubell a serum as anindicator of immune status and a br eakpoint to detect mostseropositiv e persons. AB [id number] 20:50:00 Test Item Value Reference Range Interpretation Comments AB TREPONEMA (test code = TREPAB) NONREACTIVE NONREACTIVE AG HEPATITIS B [id number] 20:15:00 Test Item Value Reference Range Interpretation Comments AG HEPATITIS B SURFACE (test code NONREACTIVE NONREACTIVE = HBSAG) AB HEPATITIS C [id number] 20:15:00 Test Item Value Reference Range Interpretation Comments AB HEPATITIS C (test code = HCVAB) NONREACTIVE SIGNAL TO CUTOFF (test code = CUTOFF) <0.80 RUBELLA [id number] 20:15:00 Test Item Value Reference Range Interpretation Comments RUBELLA SCREEN 168.6 IUnit/ml Results >10 .0IUnits/ml (test code = are considered positive RUBSC) inaccordance wi th the CLSI guidelines and based on the [employer] S tandard for Anti-Rubell a serum as anindicator of immune status and a br eakpoint to detect mostseropositiv e persons. AB [id number] 20:15:00 Test Item Value Reference Range Interpretation Comments AB TREPONEMA (test code = TREPAB) NONREACTIVE NONREACTIVE AG HEPATITIS B [id number] 20:10:00 Test Item Value Reference Range Interpretation Comments AG HEPATITIS B SURFACE (test code = NONREACTIVE HBSAG) AB HEPATITIS C [id number] 20:10:00 Test Item Value Reference Range Interpretation Comments AB HEPATITIS C (test code = HCVAB) NONREACTIVE SIGNAL TO CUTOFF (test code = CUTOFF) <0.80 RUBELLA [id number] 20:10:00 Test Item Value Reference Range Interpretation Comments RUBELLA SCREEN 168.6 IUnit/ml Results >10 .0IUnits/ml (test code = are considered positive RUBSC) inaccordance wi th the CLSI guidelines and based on the [employer] S tandard for Anti-Rubell a serum as anindicator of immune status and a br eakpoint to detect mostseropositiv e persons. AB [id number] 20:10:00 Test Item Value Reference Range Interpretation Comments AB TREPONEMA (test code = TREPAB) NONREACTIVE [id number] 19:38:00 Test Item Value Reference Range Interpretation Comments MAGNESIUM (test code = MAG) 4.1 mg/dL 1.8-2.4 H URINALYSIS [id number] 19:34:00 Test Item Value Reference Range Interpretation [...] NONE SEEN URINE SAMPLE: URINE BAGCBC W/AUTO [id number] 19:07:00 Test Item Value Reference Range Interpretation [...] tolerance 3 hours panel - Serum or [id number] 11:04:00 Test Item Value Reference Range Interpretation Comments Results (test code = fasting 75; 1hr 170; Results) 2nd hr 163 [facility] UnitGlucose tolerance 3 hours panel - Serum or Plasma 2019-02-01 11:04:00 Test Item Value Reference Range Interpretation Comments Results (test code = fasting 75; 1hr 170; Results) 2nd hr 163 [facility] UnitGlucose tolerance 3 hours panel - Serum or Plasma 2019-02-01 11:04:00 Test Item Value Reference Range Interpretation Comments Results (test code = fasting 75; 1hr 170; Results) 2nd hr 163 [facility] UnitUrinalysis macro (dipstick) panel - [id number] 08:36:32 Test Item Value Reference Range Interpretation Comments Leukocytes (test code = Leukocytes) Small Nitrite (test code = Nitrite) negative Urobilinogen (test code = 1 Urobilinogen) Protein (test code = Protein) Trace pH (test code = pH) 6.5 Blood (test code = Blood) Negative Specific [place] (test code = 1.025 Specific [place]) Ketone (test code = Ketone) Negative Bilirubin (test code = Bilirubin) Negative Glucose (test code = Glucose) Negative Appearance (test code = Appearance) Clear Color (test code = Color) Yellow [facility] GroupUrinalysis macro (dipstick) panel - [id number] 08:36:32 Test Item Value Reference Range Interpretation Comments Leukocytes (test code = Leukocytes) Small Nitrite (test code = Nitrite) negative Urobilinogen (test code = 1 Urobilinogen) Protein (test code = Protein) Trace pH (test code = pH) 6.5 Blood (test code = Blood) Negative Specific [place] (test code = 1.025 Specific [place]) Ketone (test code = Ketone) Negative Bilirubin (test code = Bilirubin) Negative Glucose (test code = Glucose) Negative Appearance (test code = Appearance) Clear Color (test code = Color) Yellow [facility] UnitUrinalysis macro (dipstick) panel - [id number] 08:36:32 Test Item Value Reference Range Interpretation Comments Leukocytes (test code = Leukocytes) Small Nitrite (test code = Nitrite) negative Urobilinogen (test code = 1 Urobilinogen) Protein (test code = Protein) Trace pH (test code = pH) 6.5 Blood (test code = Blood) Negative Specific [place] (test code = 1.025 Specific [place]) Ketone (test code = Ketone) Negative Bilirubin (test code = Bilirubin) Negative Glucose (test code = Glucose) Negative Appearance (test code = Appearance) Clear Color (test code = Color) Yellow [facility] GroupGlucose [Mass/volume] in Serum or Plasma --1 hour post dose [id number] 16:42:00 Test Item Value Reference Range Interpretation Comments Results (test code = Results) [facility] [[facility]] in Serum or Plasma --1 hour post dose [id number] 16:42:00 Test Item Value Reference Range Interpretation Comments Results (test code = Results) 155 [facility] GroupUrinalysis macro (dipstick) panel - [id number] 15:13:48 Test Item Value Reference Range Interpretation Comments Leukocytes (test code = Leukocytes) Negative Nitrite (test code = Nitrite) negative Urobilinogen (test code = .2 Urobilinogen) Protein (test code = Protein) Negative pH (test code = pH) 7.0 Blood (test code = Blood) Negative Specific [place] (test code = 1.010 Specific [place]) Ketone (test code = Ketone) Negative Bilirubin (test code = Bilirubin) Negative Glucose (test code = Glucose) Negative Appearance (test code = Appearance) Clear Color (test code = Color) [facility] - [id number] 15:13:48 Test Item Value Reference Range Interpretation Comments Leukocytes (test code = Leukocytes) Negative Nitrite (test code = Nitrite) negative Urobilinogen (test code = .2 Urobilinogen) Protein (test code = Protein) Negative pH (test code = pH) 7.0 Blood (test code = Blood) Negative Specific [place] (test code = 1.010 Specific [place]) Ketone (test code = Ketone) Negative Bilirubin (test code = Bilirubin) Negative Glucose (test code = Glucose) Negative Appearance (test code = Appearance) Clear Color (test code = Color) [facility] - [id number] 15:13:48 Test Item Value Reference Range Interpretation Comments Leukocytes (test code = Leukocytes) Negative Nitrite (test code = Nitrite) negative Urobilinogen (test code = .2 Urobilinogen) Protein (test code = Protein) Negative pH (test code = pH) 7.0 Blood (test code = Blood) Negative Specific [place] (test code = 1.010 Specific [place]) Ketone (test code = Ketone) Negative Bilirubin (test code = Bilirubin) Negative Glucose (test code = Glucose) Negative Appearance (test code = Appearance) Clear Color (test code = Color) [facility] - [id number] 10:42:58 Test Item Value Reference Range Interpretation Comments Leukocytes (test code = Leukocytes) Trace Nitrite (test code = Nitrite) negative Urobilinogen (test code = .2 Urobilinogen) Protein (test code = Protein) Trace pH (test code = pH) 6.0 Blood (test code = Blood) Negative Specific [place] (test code = 1.025 Specific [place]) Ketone (test code = Ketone) Trace Bilirubin (test code = Bilirubin) Negative Glucose (test code = Glucose) Negative Appearance (test code = Appearance) Clear Color (test code = Color) [facility] - [id number] 14:20:04 Test Item Value Reference Range Interpretation Comments Leukocytes (test code = Leukocytes) Negative Nitrite (test code = Nitrite) negative Urobilinogen (test code = .2 Urobilinogen) Protein (test code = Protein) Trace pH (test code = pH) 6.0 Blood (test code = Blood) Negative Specific [place] (test code = 1.020 Specific [place]) Ketone (test code = Ketone) Small Bilirubin (test code = Bilirubin) Negative Glucose (test code = Glucose) Negative Appearance (test code = Appearance) Clear Color (test code = Color) [facility] - [id number] 14:20:04 Test Item Value Reference Range Interpretation Comments Leukocytes (test code = Leukocytes) Negative Nitrite (test code = Nitrite) negative Urobilinogen (test code = .2 Urobilinogen) Protein (test code = Protein) Trace pH (test code = pH) 6.0 Blood (test code = Blood) Negative Specific [place] (test code = 1.020 Specific [place]) Ketone (test code = Ketone) Small Bilirubin (test code = Bilirubin) Negative Glucose (test code = Glucose) Negative Appearance (test code = Appearance) Clear Color (test code = Color) [facility] - [id number] 16:45:00 Test Item Value Reference Range Interpretation Comments Leukocytes (test code = Leukocytes) Negative Nitrite (test code = Nitrite) negative Urobilinogen (test code = .2 Urobilinogen) Protein (test code = Protein) Negative pH (test code = pH) 6.5 Blood (test code = Blood) Negative Specific [place] (test code = 1.005 Specific [place]) Ketone (test code = Ketone) Negative Bilirubin (test code = Bilirubin) Negative Glucose (test code = Glucose) Negative Appearance (test code = Appearance) Clear Color (test code = Color) [facility] Auto Differential panel - [id number] 03:14:00 Test Item Value Reference Range Interpretation Comments white blood count (test code = 10.6 K/uL 4.0-11.5 white blood count) red blood count (test code = red 4.12 M/uL 3.80-5.20 blood count) Hemoglobin [Mass/volume] in Blood 13.1 g/dL 10.5-15.7 (test code = 718-7) hematocrit (test code = hematocrit) 39.4 % 34.0-50.0 Erythrocyte mean corpuscular volume 95.7 fL 78-98 [Entitic volume] (test code = 67225-5) Erythrocyte mean corpuscular 31.9 pg 26.2-33.4 hemoglobin [Entitic mass] (test code = 66953-4) mean corpuscular HGB conc (test 33.3 g/dL 31.5-36.2 code = mean corpuscular HGB conc) red cell distribution width (test 12.1 % 11.5-15.5 code = red cell distribution width) Platelets [#/volume] in Blood (test 198 K/uL 137-338 code = 09591-7) Platelet mean volume [Entitic 10.3 fL 8.4-11.8 volume] in Blood (test code = 74794-2) Neutrophils.band form/100 68.8 % 44.4-80.1 leukocytes in Blood (test code = 53726-9) Lymphocytes/100 leukocytes in Body 21.8 % 10.0-50.0 fluid (test code = 77181-4) Monocytes/100 leukocytes in Blood 7.2 % 3.6-12.04 by Automated count (test code = 5905-5) Eosinophils/100 leukocytes in Blood 1.1 % 0.0-5.41 by Automated count (test code = 713-8) Basophils/100 leukocytes in Blood 1.0 % 0.0-0.79 H by Automated count (test code = 706-2) [facility] Groupdifferential panel, [id number] 03:14:00 NeutrophilsBandLymphocyteAtypical LymphMonocyteEosinophilBasophilPlatelet EstimatePlatelet MorphologyTarget CellsToxic GranulationHypersegmented PolysToxic VacuolationMataMerit Health BiloxiRubella virus Ab [Titer] in Serum 2018-09-15 03:14:00 Test Item Value Reference Range Interpretation Comments Rubella virus IgG Ab 384.5 [IU]/mL [Units/volume] in Serum by Immunoassay (test code = 5334-8) [facility] UnitABO & Rh group [Type] in [id number] 03:14:00 Test Item Value Reference Range Interpretation Comments Rh [Type] in Blood (test code = 4+ 84225-6) ABO and Rh group panel - Blood O positive (test code = 18774-8) [facility] UnitBlood group antibody screen [Presence] in Serum or Plasma 2018-09-15 03:14:00 Test Item Value Reference Range Interpretation Comments Blood group antibody screen negative [Presence] in Serum or Plasma (test code = 890-4) [facility] UnitHIV 1+2 Ab [Presence] in [id number] 03:14:00HIV P24 AgHIV-1/2 AbTurning Point Mature Adult Care UnitBacteria identified in Urine by Culture 2018-09-15 03:14:00Bacteria Ur [facility]Re[facility] [Presence] in Serum by [id number] 03:14:00 Test Item Value Reference Range Interpretation Comments Reagin Ab [Presence] in Serum by nonreactive nonreactive RPR (test code = 51174-9) [facility] UnitHepatitis B virus surface Ag [Presence] in Serum 2018-09-15 03:14:00 Test Item Value Reference Range Interpretation Comments .hepatitis B surface antigen (test negative negative code = .hepatitis B surface antigen) [facility]
[2023-06-01] MEDS ORDERED: KETOROLAC 30 MG/ML INJ ONE (14:30)
[2023-06-01 14:32] LABS: Absolute Lymphocytes (CBC) 1.9 K/uL (0.7-4.9); Hematocrit 36.7 % (36.0-45.0); Lymphocytes % 26.7 % (15.3-44.8); MCV 91.7 fL (80-100); MPV 9.8 fL (7.6-11.3); Platelets 197 thou/uL (152-406); RBC Red Blood Cell Count 4.01 M/uL (3.86-4.86)
[2023-06-01 14:50] LABS: Specific Gravity > 1.030 (1.005-1.030)
[2023-06-01 14:53] LABS: Specific Gravity > 1.030 (1.005-1.030); Urine Bacteria None Seen /HPF (<20); Urine Bilirubin NEGATIVE (Negative); Urine Blood Negative (Negative); Urine Clarity Turbid (Clear); Urine Color Yellow (Yellow); Urine Glucose NEGATIVE (Negative); Urine Mucus 3+ /HPF (None Seen); Urine Protein 1+ (Negative); Urine RBC <5 /HPF (None Seen); Urine Urobilinogen Normal (Normal); Urine pH 5.5 (5.0-7.0)
[2023-06-01 15:19] LABS: Albumin 3.5 g/dL (3.4-5.0); Bilirubin Total 0.9 mg/dL (0.2-1.0); Potassium 3.4 mEq/L (3.5-5.1); Protein, Total 7.3 g/dL (6.4-8.2)
--- NOTE | 2023-06-01 15:56 | RAD REPORT ---
EXAM DESCRIPTION: CT - Stone Protocol - 06/01/2023 2:46 pm CLINICAL HISTORY: ABD PAIN COMPARISON: No comparisons TECHNIQUE: Thin cut axial CT imaging of the abdomen and pelvis was performed without IV contrast. Mu ltiplanar reformats were generated and reviewed. All CT scans are performed using dose optimization technique as appropriate and may include automated exposure control or mA/KV adjustment according to patient size. FINDINGS: No suspicious findings in the lung bases. The liver, spleen, adrenal glands, and pancreas show no suspicious findings. Gallbladder is decompres sed, limiting evaluation. No evidence of intra or extrahepatic biliary ductal dilation. Symmetric renal contour, without suspicious parenchymal findings within limits of noncontrast techniq ue. No evidence of radiopaque calculi or hydroureteronephrosis. No dilated bowel loops or bowel wall thickening. No free air, free fluid or inflammatory stranding. N o hernia, mass or bulky lymphadenopathy. The urinary bladder is decompressed limiting evaluation. No suspicious bony findings. IMPRESSION: No acute intra-abdominal process.
--- NOTE | 2023-06-01 16:03 | RAD REPORT ---
EXAM DESCRIPTION: US - Pelvis Complete - 06/01/2023 2:42 pm CLINICAL HISTORY: left pelvic pain, eval for ruptured cyst COMPARISON: Stone Protocol dated 06/01/2023 TECHNIQUE: Sonographic grayscale and color flow images of the pelvis were obtained through transva ginal approach. FINDINGS: The uterus is normal in size, shape and echotexture. The uterus measures 9.2 cm in length. The endometrial stripe measures 1.3 cm in thickness, probably within normal limits. Correlate with me nstrual phase. Both ovaries are normal in size, shape and echotexture. The right ovary measures 2.0 x 1.3 x 1.8 cm. The left ovary measures 3.1 x 2.0 x 1.9 cm. No ovarian or parovarian suspicious lesions, with bilat eral small peripheral ovarian follicles. No adnexal masses. Normal Doppler blood flow was demonstrated to both ovaries. No significant pelvic ascites. IMPRESSION: Normal pelvic ultrasound. No evidence of torsion for suspicious adnexal lesions. Mild prominence of the endometrial stripe. Please correlate with menstrual phase.
--- NOTE | 2023-06-01 16:43 | ER ---
Nurse's Notes [facility] Name: Iram Greco Age: 33 yrs Sex: Female : 1990 Arrival Date: 06/01/2023 Time: 14:10 Bed 2 Private MD: Diagnosis: Lower abdominal pain, unspecified Presentation: 06/01 14:11 Chief complaint: Patient states: LLQ abdominal pain that radiates to her back onset cm10 today after lunch. Pt states that she was walking when the pain started. Coronavirus screen: Vaccine status: Patient reports being unvaccinated. Client denies travel out of the [place] in the last 14 days. Ebola Screen: Patient denies travel to an Ebola-affected area in the 21 days before illness onset. No symptoms or risks identified at this time. Initial Sepsis Screen: Does the patient meet any 2 criteria? No. Patient's initial sepsis screen is negative. Does the patient have a suspected source of infection? No. Patient's initial sepsis screen is negative. Risk Assessment: Do you want to hurt yourself or someone else? Patient reports no desire to harm self or others. Onset of symptoms was June 01, 2023. 14:11 Method Of Arrival: EMS: [facility] cm10 14:11 Acuity: SCOT 3 cm10 14:20 Care prior to arrival: IV initiated. 20 GA, in the right antecubital area. cm10 Triage Assessment: 17:05 General: Appears in no apparent distress. comfortable, Behavior is calm, cooperative. cm10 Pain: Complains of pain in left lower quadrant. GI: Abdomen is flat. 17:06 Neuro: No deficits noted. Maria Agitation-Sedation Scale (RASS): 0 - Alert and Calm cm10 Level of Consciousness is awake, alert, obeys commands, Oriented to person, place, time, situation. Respiratory: No deficits noted. Airway is patent Respiratory effort is even, Respiratory pattern is regular, symmetrical. 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 - Social history:: Smoking status: Patient denies any tobacco usage or history of. - Family history:: not pertinent. - Hospitalizations: : No recent hospitalization is reported. Screenin:20 [facility] ED Fall Risk Assessment (Adult) History of falling in the last 3 months, cm10 including since admission No falls in past 3 months (0 pts) Confusion or Disorientation No (0 pts) Intoxicated or Sedated No (0 pts) Impaired Gait No (0 pts) Mobility Assist Device Used No (0 pt) Altered Elimination No (0 pt) Score/Fall Risk Level 0 - 2 = Low Risk Oriented to surroundings, Maintained a safe environment, Hourly rounding (assess needs \T\ fall precautionary measures) done. Abuse screen: Denies threats or abuse. Denies injuries from another. Nutritional screening: No deficits noted. Tuberculosis screening: No symptoms or risk factors identified. Assessment: 16:02 Reassessment: Patient and/or family updated on plan of care and expected duration. Pain mb9 level reassessed. Patient is alert, oriented x 3, equal unlabored respirations, skin warm/dry/pink. Patient states feeling better. Patient states symptoms have improved. 17:06 GI: Bowel sounds Abd is soft. cm10 Vital Signs: 14:11 BP 147 / 90; Pulse 76; Resp 18; Temp 97.6(O); Pulse Ox 100% on R/A; Weight 65.77 kg; cm10 Height 5 ft. 1 in. ; Pain 7/10; 16:02 Pulse 76; Resp 18; Pulse Ox 100% on R/A; mb9 16:12 BP 124 / 80; mb9 14:11 Body Mass Index 27.40 (65.77 kg, 154.94 cm) cm10 14:11 Pain Scale: Adult cm10 ED Course: 14:11 Patient arrived in ED. cm10 14:12 Abhi Glasgow MD is Attending Physician. rn 14:20 Triage completed. cm10 14:20 Arm band placed on Patient placed in an exam room, on a stretcher. cm10 14:20 Patient has correct armband on for positive identification. Placed in gown. Bed in low cm10 position. Call light in reach. Side rails up X2. Provided Education on: ER process and procedures. . Pulse ox on. NIBP on. Door closed. 14:20 No provider procedures requiring assistance completed. Maintain EMS IV. Dressing cm10 intact. Good blood return noted. Site clean \T\ dry. Gauge \T\ site: 20G RAC. 14:22 Belle Balderrama, RN is Primary Nurse. cm10 14:44 US Pelvis Complete In Process Unspecified. EDMS 14:47 CT Stone Protocol In Process Unspecified. EDMS 17:05 IV discontinued, intact, bleeding controlled, No redness/swelling at site. Pressure cm10 dressing applied. Administered Medications: 15:00 Drug: Ketorolac IVP 15 mg IVP once Route: IVP; Site: right antecubital; iw 16:17 Follow up: Response: No adverse reaction; Pain is decreased cm10 Medication: 14:20 VIS not applicable for this client. cm10 Outcome: 16:42 Discharge ordered by . rn 17:05 Discharged to home ambulatory, with family, cm10 17:05 Condition: good 17:05 Discharge instructions given to patient, Instructed on discharge instructions, follow up and referral plans. Demonstrated understanding of instructions, follow-up care, 17:06 Patient left the ED. cm10 Signatures: Dispatcher [employer] Ignacia Farrell, RN Abhi Knott MD MD rn Breneman, Mary Beth, RN RN mb9 Belle Balderrama, RN RN cm10
--- NOTE | 2023-06-01 16:43 | EDPHYS ---
Physician Documentation [facility] Name: Iram Greco Age: 33 yrs Sex: Female : 1990 Arrival Date: 06/01/2023 Time: 14:10 Bed 2 Private MD: ED Physician Abhi Glasgow HPI: 06/01 15:38 This 33 yrs old Female presents to ER via EMS with complaints of Abdominal rn Pain. 15:38 The patient presents with abdominal pain in the left lower quadrant. Onset: The rn symptoms/episode began/occurred today. The symptoms radiate to back. Associated signs and symptoms: Pertinent negatives: nausea and vomiting, blood in stools, chest pain, constipation, fever. The symptoms are described as sharp, stabbing. Modifying factors: The symptoms are alleviated by nothing, the symptoms are aggravated by movement. Severity of pain: At its worst the pain was moderate in the emergency department the pain has improved. The patient has experienced a previous episode. Patient reports left lower quadrant and suprapubic abdominal pain that began earlier today around lunchtime. Feels sharp and stabbing. Similar to previous episode when had ruptured ovarian cyst. Denies and LMP was 2 weeks ago. No vaginal bleeding or discharge. No fever or vomiting.. 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 - Social history:: Smoking status: Patient denies any tobacco usage or history of. - Family history:: not pertinent. - Hospitalizations: : No recent hospitalization is reported. ROS: 15:38 Constitutional: Negative for fever, chills, and weight loss, Cardiovascular: Negative rn for chest pain, palpitations, and edema, Respiratory: Negative for shortness of breath, cough, wheezing, and pleuritic chest pain, Abdomen/GI: Positive for left lower quadrant abdominal pain Back: Negative for injury and pain, : Negative for injury, bleeding, discharge, and swelling, MS/Extremity: Negative for injury and deformity, Skin: Negative for injury, rash, and discoloration, Neuro: Negative for headache, weakness, numbness, tingling, and seizure, Exam: 15:38 Constitutional: This is a well developed, well nourished patient who is awake, alert, rn and in no acute distress. Cardiovascular: Regular rate and rhythm. No pulse deficits. Abdomen/GI: Soft, tender left lower quadrant and suprapubic region without rebound. No distention. Vital Signs: 14:11 BP 147 / 90; Pulse 76; Resp 18; Temp 97.6(O); Pulse Ox 100% on R/A; Weight 65.77 kg; cm10 Height 5 ft. 1 in. ; Pain 7/10; 16:02 Pulse 76; Resp 18; Pulse Ox 100% on R/A; mb9 16:12 BP 124 / 80; mb9 14:11 Body Mass Index 27.40 (65.77 kg, 154.94 cm) cm10 14:11 Pain Scale: Adult cm10 MDM: 14:12 Patient medically screened. rn 16:41 Differential diagnosis: diverticulitis, Endometriosis, non-specific abd pain, Ovarian rn Torsion, Pyelonephritis, Tubal Ovarian Abcess, Ureterolithiasis, urinary tract infection, Ovarian cyst, ruptured ovarian cyst. Data reviewed: vital signs, nurses notes, lab test result(s), radiologic studies, CT scan, ultrasound, and as a result, I will discharge patient. Counseling: I had a detailed discussion with the patient and/or guardian regarding the historical points, exam findings, and any diagnostic results supporting the discharge/admit diagnosis, lab results, radiology results, the need for outpatient follow up, to return to the emergency department if symptoms worsen or persist or if there are any questions or concerns that arise at home. Response to treatment: the patient's symptoms have markedly improved after treatment, the patient's symptoms have resolved after treatment, the patient's condition has returned to base line, the patient is now symptom free, and as a result, I will discharge patient. Special discussion: Based on the patient's Hx, exam, and Dx evaluation, there is no indication for emergent surgery or inpatient Tx. It is understood by the patient/guardian that if the Sx's persist or worsen they need to return immediately for re-evaluation. I discussed with the patient/guardian in detail that at this point there is no indication for admission to the hospital. It is understood, however, that if the symptoms persist or worsen the patient needs to return immediately for re-evaluation. ED course: Pain has completely resolved after Toradol. No acute findings on CT or ultrasound. Negative for ovarian torsion. No evidence of free fluid or ruptured ovarian cyst. I have personally reviewed all of the results, including but not limited to blood tests and imaging deemed necessary to safely discharge this patient at this time. All results given to and printed out for patient. I personally went over all the results with the patient and answered all questions. Patient will follow-up with PCP and or specialist as discussed. Return precautions given and understood.. 06/01 14:13 Order name: CBC with Diff; Complete Time: 15:20 rn 06/01 14:13 Order name: CMP; Complete Time: 15:20 rn 06/01 14:13 Order name: Test, Urine; Complete Time: 15:20 rn 06/01 14:13 Order name: Urinalysis w/ reflexes; Complete Time: 15:20 rn 06/01 14:13 Order name: US Pelvis Complete; Complete Time: 16:30 rn 06/01 14:13 Order name: CT Stone Protocol; Complete Time: 16:30 rn 06/01 14:13 Order name: IV Saline Lock; Complete Time: 14:13 rn 06/01 14:13 Order name: Labs collected and sent; Complete Time: 14:22 rn 06/01 14:34 Order name: Labs - recollect needed: recollect green top; Complete Time: 14:53 bd Administered Medications: 15:00 Drug: Ketorolac IVP 15 mg IVP once Route: IVP; Site: right antecubital; 16:17 Follow up: Response: No adverse reaction; Pain is decreased cm10 Disposition Summary: 06/01/23 16:42 Discharge Ordered Notes: Location: Home rn Problem: new rn Symptoms: have improved rn Condition: Stable rn Diagnosis - Lower abdominal pain, unspecified rn Followup: rn - With: Private Physician - When: As needed - Reason: Recheck today's complaints, Re-evaluation by your physician Discharge Instructions: - Discharge Summary Sheet rn - Abdominal Pain, Adult rn - Pain Without a Known Cause rn Forms: - Medication Reconciliation Form rn - Thank You Letter rn - Antibiotic rn camp - Prescription Opioid Use rn - Patient Portal Instructions rn - Leadership Thank You Letter rn - Work release form cm10 Signatures: Dispatcher [employer] Padmini Anaya Irene, RN RN Abhi Zuniga MD MD rn Martinez, Clarissa, JAE RN cm10
[2023-06-01 17:19] VITALS: TEMP 97.6; O2SAT 100
[2023-06-01 17:22] VITALS: BP 124/80
== END 2023-06-01 17:06 | disposition home or self-care (01) ==
LOC: ER 14:10
DX: R10.32 Left lower quadrant pain (principal)
CPT/HCPCS: 36415; 74176; 76377; 76856; 80053; 81001; 81025; 85025; 96374; 99284